=== PATIENT | male | born 1960 | race Caucasian/White ===

== ENCOUNTER 2020-01-21 00:20 | Day surgery (SDC) | payer BC, SELFPAY ==
[2020-01-19 10:40] VITALS: BMI 27.4
[2020-01-21 09:25] VITALS: BP 151/91; PULSE 85; RESP 18; TEMP 36.9; O2SAT 98; BMI 27.8
--- NOTE | 2020-01-21 09:28 | WPDANESEPPF ---
Anes - Initial Pre Proc Eval Procedure: Operation Date: 01/21/20 10:15 Proposed Procedures p Screening Colonoscopy - Romero Walker MD Date/Time: 01/21/20 09:28 Surgeon: Romero Walker MD Pre Op Diagnosis: COLON CA SCREENING Patient Data Age: 59 Gender: M Height: 5 ft 8 in Weight: 83 kg Last Vital Signs Temp 36.9 C 01/21/20 09:25 Pulse 85 01/21/20 09:25 Resp 18 01/21/20 09:25 BP 151/91 H 01/21/20 09:25 Pulse Ox 98 01/21/20 09:25 Allergies Allergy/AdvReac Type Severity Reaction Status Date / Time No Known Allergies Allergy Unverified 01/21/20 09:24 Home Medications Medication Instructions Recorded Confirmed Type albuterol sulfate [ProAir HFA] 2 inh INHALATION TID PRN 01/19/20 01/19/20 History baclofen 10 mg PO TID PRN 01/19/20 01/19/20 History calcium carbonate-vitamin D3 1 cap PO QAM 01/19/20 01/19/20 History [Calcium 600 + D(3)] cetirizine [All Day Allergy 10 mg PO DAILY 01/19/20 01/19/20 History (cetirizine)] fluticasone propionate 1 spray INTRANASAL HS 01/19/20 01/19/20 History meloxicam 15 mg PO HS 01/19/20 01/19/20 History multivit,stress formula-zinc 1 tablet PO DAILY 01/19/20 01/19/20 History [Stress B With Zinc] rizatriptan 10 mg PO ONCE 01/19/20 01/19/20 History sildenafil (pulm.hypertension) 20 mg PO DAILY PRN 01/19/20 01/19/20 History Patient hx anesthesia problems: none Family hx anesthesia problems: none PMFSH Past Medical History Medical History Back pain Chewing tobacco nicotine dependence Anes - Eval Final PreProcedure Day of Procedure 01/21/20 09:28 Patient weight: overweight Heart: regular rate and rhythm Lungs: clear to auscultation Airway: Mallampati scale class 1 Neurological: alert and oriented Last oral intake: >/= 8 hours (chewed this am) ASA classification: II Emergent: no Anesthetic plan: proceed Anesthesia type and monitoring: general GIVS and standard monitoring Informed Consent: The patient's anesthetic plan and its attendant risks and benefits were discussed with the patient/family/POA. Questions were solicited and answers provided to the satisfaction of the patient/family/POA.
[2020-01-21] MEDS: LACTATED RINGERS 1,000 ML 150 ML IV CONT (09:35)
[2020-01-21] MEDS: FAMOTIDINE 20 MG/2 ML VIAL IV PUSH (09:44)
[2020-01-21] MEDS: ONDANSETRON INJ 4 MG/2 ML VIAL IV PUSH (09:44)
--- NOTE | 2020-01-21 10:20 | PM.HPGS ---
History of Present Illness History of Present Illness Consent: Risks, benefits, and alternatives have been discussed and questions answered. Patient agrees to proceed with procedure. Chief complaint: COLON CA SCREENING Narrative: Tre Hardin is a 59 year old male here for screening colonoscopy, last one about 10 years ago. Review of Systems Constitutional: Constitutional: Denies headache(s) and Denies weakness Eyes: Eyes: Denies blurry vision ENT: Reports Normal hearing present, Denies headache(s) and Denies neck pain Cardiovascular: Cardiovascular: Denies chest pain and Denies dyspnea Respiratory: Respiratory: Denies dyspnea Gastrointestinal: Gastrointestinal: Reports no additional gastrointestinal complaints Genitourinary: Genitourinary: Denies dysuria Musculoskeletal: Musculoskeletal: Denies neck pain Integumentary/Breasts: Skin/Breast: Denies dry skin Neurologic: Reports Normal hearing present, Denies headache(s) and Denies weakness Psychiatric: Psychiatric: Denies anxiety Endocrine: Endocrine: Denies change in body appearance Hematologic/Lymphatic: Hematologic/Lymphatic: Denies easy bleeding Allergic/Immunologic: Allergic/Immunologic: Denies urticaria PMFSH Past Medical History Medical History (Updated 01/21/20 @ 10:21 by Romero Walker MD) Back pain Chewing tobacco nicotine dependence Colon cancer screening Meds Home Medications and Allergies Home Medications Medication Instructions Recorded Confirmed Type albuterol sulfate [ProAir HFA] 2 inh INHALATION TID PRN 01/19/20 01/19/20 History baclofen 10 mg PO TID PRN 01/19/20 01/19/20 History calcium carbonate-vitamin D3 1 cap PO QAM 01/19/20 01/19/20 History [Calcium 600 + D(3)] cetirizine [All Day Allergy 10 mg PO DAILY 01/19/20 01/19/20 History (cetirizine)] fluticasone propionate 1 spray INTRANASAL HS 01/19/20 01/19/20 History meloxicam 15 mg PO HS 01/19/20 01/19/20 History multivit,stress formula-zinc 1 tablet PO DAILY 01/19/20 01/19/20 History [Stress B With Zinc] rizatriptan 10 mg PO ONCE 01/19/20 01/19/20 History sildenafil (pulm.hypertension) 20 mg PO DAILY PRN 02/24/20 02/24/20 History Allergies Allergy/AdvReac Type Severity Reaction Status Date / Time No Known Allergies Allergy Unverified 01/21/20 09:24 Vital Signs Vital Signs - 24 hr 01/21/20 09:25 Temperature 98.5 F Pulse Rate 85 Respiratory Rate 18 Blood Pressure 151/91 H Pulse Oximetry 98 Exam Const: General: comfortable and no acute distress HENMT: General nose exam: Normal nares present Eyes: General: appearance normal, both eyes and all related structures Neck: Neck: no JVD Resp: Auscultation: clear to auscultation bilaterally Cardio: Rate: regular rate Rhythm: regular rhythm GI: Inspection: non-distended GI Palp: Yes Soft to palpation Skin: General skin exam: normal color Neuro: General: gait normal Speech: normal speech Extrem: General: normal to inspection Psych: Mental Status: mental status grossly normal Assessment and Plan Assessment and plan (1) Colon cancer screening: Code(s): Z12.11 - Encounter for screening for malignant neoplasm of colon Status: Acute
[2020-01-21 10:23] VITALS: BP 108/75; PULSE 79; RESP 18; O2SAT 98
[2020-01-21 10:43] VITALS: BP 109/73; PULSE 73; RESP 18; O2SAT 98
[2020-01-21 10:53] VITALS: BP 113/76; PULSE 73; RESP 18; O2SAT 98
== END 2020-01-21 10:55 | disposition home or self-care (01) ==
PROVIDERS: PCP Internal Medicine; Visit Provider Internal Medicine Gastroenterology
PROC: 0DJD8ZZ Inspection of Lower Intestinal Tract, Via Natural or Artificial Opening Endoscopic (ICD-10-PCS; CPT 45378; principal; 2020-01-21 10:15)
DX: Z12.11 Encounter for screening for malignant neoplasm of colon (principal); D12.0 Benign neoplasm of cecum; D12.4 Benign neoplasm of descending colon; K57.30 Diverticulosis of large intestine without perforation or abscess without bleeding; K64.8 Other hemorrhoids; F17.220 Nicotine dependence, chewing tobacco, uncomplicated
CPT/HCPCS: 45380; 88305; J2405; J2704; J7120

== ENCOUNTER 2020-05-14 07:42 | Outpatient (CLI) | payer BC, SELFPAY ==
--- NOTE | ~2020-05-14 | CT_ITS ---
EXAMINATION: CT abdomen pelvis w con INDICATION: Right lower quadrant pain TECHNIQUE: Computed tomographic images of the abdomen and pelvis were obtained after the administrati on of 100 cc of Omnipaque 350 intravenous contrast. The dose-length product (DLP) was 480.64 mGy-cm. Automated exposure control and iterative reconstruction technique were employed. COMPARISON: None available FINDINGS: The lung bases are clear. The heart size is normal. The liver, spleen, pancreas, gallbladde r, and adrenal glands are normal. The kidneys are unremarkable. There is calcified atherosclerosis of the aorta and many of the other arteries. No pathologically enlarged abdominal or pelvic lymph nodes are identified. There is no free intraperitoneal gas or evidence of bowel obstruction. The appendix is normal. There are changes of left inguinal hernia repair. A large volume of colonic stool is prese nt. There is moderate lumbar spondylosis. IMPRESSION: 1. Constipation. Reviewed, dictated and finalized at location A. IMPRESSION: 1. Constipation.
[2020-05-14 08:07] LABS: Estimated Glomerular Filt Rate > 60
== END 2020-05-14 07:43 | disposition home or self-care (01) ==
LOC: CHSIMG 07:43
PROVIDERS: PCP Internal Medicine; Visit Provider Internal Medicine
DX: R10.9 Unspecified abdominal pain (principal)
CPT/HCPCS: 74177; Q9965

== ENCOUNTER 2021-07-05 13:24 | Outpatient (CLI) | payer BC, SELFPAY ==
--- NOTE | ~2021-07-05 | XR_ITS ---
EXAMINATION: XR hip BI wo pelvis DATE: 07/05/2021 13:47 INDICATION: Bilateral hip pain. TECHNIQUE: 2 views of right hip and 2 views of left hip were obtained. COMPARISON: Right hip radiographs 08/26/2014, pelvis radiograph 08/26/2014 FINDINGS: Bone alignment is normal. No fracture. There is mild left hip osteoarthritis characterized by tiny marginal osteophytes. Surgical clips overlie the left pelvis. IMPRESSION: 1. Mild left hip osteoarthritis. Reviewed, dictated and finalized at location A.
--- NOTE | ~2021-07-05 | XR_ITS ---
EXAMINATION: XR lumbar spine 2-3V DATE: 07/05/2021 13:47 INDICATION: Low back pain TECHNIQUE: Anteroposterior and lateral views of the lumbar spine, and cone-down lateral view of the l umbosacral junction were obtained. COMPARISON: CT dated 05/14/2020 FINDINGS: Transitional L1 segment with right-sided hypoplastic riblet. 2 mm anterolisthesis L3 on L4. Vertebral body heights are normal. Mild to moderate right-sided predominant disc height loss at L4-L5 and mild disc height loss at L3-L4. Lumbar facet osteoarthritis, moderate bilaterally at L4-L5 and severe bhanu aterally at L5-S1. Mild left-sided and moderate right-sided sacroiliac osteoarthritis. Postoperative change of prior left inguinal hernia repair. IMPRESSION: 1. Moderate lower lumbar facet osteoarthritis. Reviewed, dictated and finalized at location A.
== END 2021-07-05 13:25 | disposition home or self-care (01) ==
LOC: CHSIMG 13:27
PROVIDERS: PCP Internal Medicine; Visit Provider Internal Medicine
DX: M54.9 Dorsalgia, unspecified (principal); M25.552 Pain in left hip; M25.551 Pain in right hip
CPT/HCPCS: 72100; 73521

== ENCOUNTER 2022-07-03 10:45 | Outpatient (CLI) | payer BC, SELFPAY ==
--- NOTE | ~2022-07-03 | XR_ITS ---
XR lumbar spine min 4V DATE: 07/03/2022 11:38 INDICATION: Lumbar stenosis. Leg pain. TECHNIQUE: Weightbearing AP, lateral views. Weightbearing flexion and extension lateral views. COMPARISON: 07/05/2021 lumbar spine FINDINGS: There is mild thoracolumbar dextroscoliosis. Osteopenia. There is minimal grade 1 anterolisthesis at L3-4 and L5-S1. There is moderate degenerative disc disease at L3-4, mild degenerative disc disease at L4-5. No instability of the lumbar spine on flexion or extension. The lower thoracic and lumbar pedicles are intact. The sacroiliac joints are normal. Postoperative change overlying left inguinal area. IMPRESSION: Osteopenia Mild thoracolumbar dextroscoliosis Degenerative disc disease at L3-4 and L4-5 Reviewed, dictated and finalized at location B.
== END 2022-07-03 10:46 | disposition home or self-care (01) ==
PROVIDERS: PCP Internal Medicine; Visit Provider Neurological Surgery
DX: M54.9 Dorsalgia, unspecified (principal); M48.061 Spinal stenosis, lumbar region without neurogenic claudication
CPT/HCPCS: 72110

== ENCOUNTER 2022-07-05 15:55 | Outpatient (CLI) | payer BC, SELFPAY ==
--- NOTE | ~2022-07-05 | XR_ITS ---
EXAMINATION: XR chest 2V 07/05/2022 16:07 INDICATION: Chest pain PROCEDURE: 2 view chest COMPARISON: 05/27/2019 FINDINGS: The lungs are clear. The cardiomediastinal silhouette is within normal limits. There are no pleural effusions. There is no pneumothorax suspected. The lungs are hyperinflated which is consistent with, but not diagnostic of chronic obstructive pulmo nary disease. IMPRESSION: 1: NO ACUTE CARDIOPULMONARY DISEASE. Reviewed, dictated and finalized at location A.
== END 2022-07-05 15:56 | disposition home or self-care (01) ==
LOC: CHSIMG 15:57
PROVIDERS: PCP Internal Medicine; Visit Provider Internal Medicine
DX: Z00.00 Encounter for general adult medical examination without abnormal findings (principal); M54.9 Dorsalgia, unspecified; E78.5 Hyperlipidemia, unspecified; R63.4 Abnormal weight loss; R23.2 Flushing; Z12.5 Encounter for screening for malignant neoplasm of prostate
CPT/HCPCS: 71046

== ENCOUNTER 2022-07-07 12:36 | Outpatient (CLI) | payer BC, SELFPAY | END 2022-07-07 12:37 | disposition home or self-care (01) | LOC: CHSCARD 12:37 | PROVIDERS: PCP Internal Medicine; Visit Provider Internal Medicine | DX: J44.9 Chronic obstructive pulmonary disease, unspecified (principal) | CPT/HCPCS: 94060; 94726; 94729 ==

== ENCOUNTER 2023-03-14 09:35 | Outpatient (NON) | payer BC, SELFPAY ==
[2023-03-14 09:50] LABS: Basophils Absolute Auto 0.09 K/mm3 (0.00-0.10); Basophils Percent Auto 1.5 % (0.0-1.0); Eosinophils Absolute Auto 0.28 K/mm3 (0.02-0.50); Eosinophils Percent Auto 4.6 % (1.0-6.0); Hematocrit 39.5 % (40.0-54.0); Hemoglobin 12.7 g/dL (14.0-18.0); Immature Granulocyte Absolute 0.01 K/mm3 (0.00-0.00); Immature Granulocyte Percent A 0.2 % (0.0-0.0); Lymphocytes Absolute Auto 1.56 K/mm3 (1.10-4.50); Lymphocytes Percent Auto 25.8 % (18.0-42.0); Mean Corpuscular HGB Conc 32.2 g/dL (32.0-36.0); Mean Corpuscular Hemoglobin 27.2 pg (27.0-31.0); Mean Corpuscular Volume 84.6 fL (78.0-102.0); Mean Platelet Volume 9.3 fl (8.7-11.0); Monocytes Absolute Auto 0.63 K/mm3 (0.10-0.90); Monocytes Percent Auto 10.4 % (2.0-11.0); Neutrophils Absolute Auto 3.5 K/mm3 (1.7-7.2); Neutrophils Percent Auto 57.5 % (50.0-70.0); Platelet Count Result 322 K/mm3 (150-420); Red Blood Count 4.67 M/mm3 (4.70-6.10); White Blood Count 6.1 K/mm3 (4.8-10.8)
[2023-03-14 10:07] LABS: Alanine Aminotransferase 27 U/L (16-63); Albumin Level 3.2 g/dL (3.4-5.0); Alkaline Phosphatase 105 U/L (46-116); Anion Gap 9 mmol/L (8-16); Aspartate Amino Transferase 23 U/L (15-37); Bilirubin,Total 0.3 mg/dL (0.00-1.00); Blood Urea Nitrogen 12 mg/dL (7-18); Calcium 8.9 mg/dL (8.5-10.1); Carbon Dioxide 28 mmol/L (21-32); Chloride 103 mmol/L (98-108); Estimated Glomerular Filt Rate > 60; Glucose 96 mg/dL (70-99); Osmolality Calculated 289 mOsm/kg (285-295); Potassium 3.8 mmol/L (3.5-5.1); Sodium 140 mmol/L (136-145); Total Protein 7.9 g/dL (6.4-8.2)
[2023-03-14 10:14] LABS: CRP < 0.5 mg/dL (0.0-0.9)
[2023-03-14 10:35] LABS: Erythrocyte Sedimentation Rate 35 mm/hr (0-20)
== END 2023-03-14 09:36 | disposition home or self-care (01) ==
LOC: CHSLAB 09:37
PROVIDERS: Visit Provider Internal Medicine
DX: M46.26 Osteomyelitis of vertebra, lumbar region (principal)
CPT/HCPCS: 36415; 80053; 85025; 85652; 86140

== ENCOUNTER 2023-03-21 10:32 | Outpatient (NON) | payer BC, SELFPAY ==
[2023-03-21 10:56] LABS: Basophils Absolute Auto 0.07 K/mm3 (0.00-0.10); Basophils Percent Auto 1.3 % (0.0-1.0); Eosinophils Absolute Auto 0.36 K/mm3 (0.02-0.50); Eosinophils Percent Auto 6.7 % (1.0-6.0); Hematocrit 41.7 % (40.0-54.0); Hemoglobin 13.2 g/dL (14.0-18.0); Immature Granulocyte Absolute 0.01 K/mm3 (0.00-0.00); Immature Granulocyte Percent A 0.2 % (0.0-0.0); Lymphocytes Absolute Auto 1.33 K/mm3 (1.10-4.50); Lymphocytes Percent Auto 24.9 % (18.0-42.0); Mean Corpuscular HGB Conc 31.7 g/dL (32.0-36.0); Mean Corpuscular Hemoglobin 26.8 pg (27.0-31.0); Mean Corpuscular Volume 84.8 fL (78.0-102.0); Mean Platelet Volume 9.4 fl (8.7-11.0); Monocytes Absolute Auto 0.63 K/mm3 (0.10-0.90); Monocytes Percent Auto 11.8 % (2.0-11.0); Neutrophils Absolute Auto 2.9 K/mm3 (1.7-7.2); Neutrophils Percent Auto 55.1 % (50.0-70.0); Platelet Count Result 260 K/mm3 (150-420); Red Blood Count 4.92 M/mm3 (4.70-6.10); Red Cell Distribution Width 13.5 % (11.6-14.4); White Blood Count 5.3 K/mm3 (4.8-10.8)
[2023-03-21 11:11] LABS: Alanine Aminotransferase 20 U/L (16-63); Albumin Level 3.5 g/dL (3.4-5.0); Alkaline Phosphatase 99 U/L (46-116); Anion Gap 6 mmol/L (8-16); Aspartate Amino Transferase 17 U/L (15-37); Bilirubin,Total 0.4 mg/dL (0.00-1.00); Blood Urea Nitrogen 14 mg/dL (7-18); Calcium 8.8 mg/dL (8.5-10.1); Carbon Dioxide 28 mmol/L (21-32); Chloride 103 mmol/L (98-108); Estimated Glomerular Filt Rate > 60; Glucose 98 mg/dL (70-99); Osmolality Calculated 284 mOsm/kg (285-295); Potassium 3.9 mmol/L (3.5-5.1); Sodium 137 mmol/L (136-145); Total Protein 7.8 g/dL (6.4-8.2)
[2023-03-21 11:26] LABS: CRP < 0.5 mg/dL (0.0-0.9)
[2023-03-21 11:59] LABS: Erythrocyte Sedimentation Rate 30 mm/hr (0-20)
[2023-03-22 12:15] LABS: Creatine Kinase 110 U/L (39-308)
== END 2023-03-21 10:33 | disposition home or self-care (01) ==
PROVIDERS: Visit Provider Internal Medicine
DX: M46.26 Osteomyelitis of vertebra, lumbar region (principal); G06.1 Intraspinal abscess and granuloma; T81.40XA Infection following a procedure, unspecified, initial encounter
CPT/HCPCS: 36415; 80053; 82550; 85025; 85652; 86140

== ENCOUNTER 2023-04-04 09:36 | Outpatient (NON) | payer BC, SELFPAY ==
[2023-04-04 09:47] LABS: Basophils Absolute Auto 0.07 K/mm3 (0.00-0.10); Basophils Percent Auto 1.5 % (0.0-1.0); Eosinophils Absolute Auto 0.28 K/mm3 (0.02-0.50); Eosinophils Percent Auto 5.8 % (1.0-6.0); Hematocrit 40.4 % (40.0-54.0); Hemoglobin 12.9 g/dL (14.0-18.0); Immature Granulocyte Absolute 0.02 K/mm3 (0.00-0.00); Immature Granulocyte Percent A 0.4 % (0.0-0.0); Lymphocytes Absolute Auto 1.32 K/mm3 (1.10-4.50); Lymphocytes Percent Auto 27.6 % (18.0-42.0); Mean Corpuscular HGB Conc 31.9 g/dL (32.0-36.0); Mean Corpuscular Hemoglobin 26.9 pg (27.0-31.0); Mean Corpuscular Volume 84.3 fL (78.0-102.0); Mean Platelet Volume 9.6 fl (8.7-11.0); Monocytes Absolute Auto 0.53 K/mm3 (0.10-0.90); Monocytes Percent Auto 11.1 % (2.0-11.0); Neutrophils Absolute Auto 2.6 K/mm3 (1.7-7.2); Neutrophils Percent Auto 53.6 % (50.0-70.0); Platelet Count Result 227 K/mm3 (150-420); Red Blood Count 4.79 M/mm3 (4.70-6.10); Red Cell Distribution Width 13.7 % (11.6-14.4); White Blood Count 4.8 K/mm3 (4.8-10.8)
[2023-04-04 10:06] LABS: Alanine Aminotransferase 26 U/L (16-63); Albumin Level 3.4 g/dL (3.4-5.0); Alkaline Phosphatase 86 U/L (46-116); Anion Gap 11 mmol/L (8-16); Aspartate Amino Transferase 27 U/L (15-37); Bilirubin,Total 0.4 mg/dL (0.00-1.00); Blood Urea Nitrogen 16 mg/dL (7-18); Calcium 8.7 mg/dL (8.5-10.1); Carbon Dioxide 26 mmol/L (21-32); Chloride 103 mmol/L (98-108); Creatine Kinase 222 U/L (39-308); Estimated Glomerular Filt Rate > 60; Glucose 130 mg/dL (70-99); Osmolality Calculated 293 mOsm/kg (285-295); Potassium 3.8 mmol/L (3.5-5.1); Sodium 140 mmol/L (136-145); Total Protein 7.1 g/dL (6.4-8.2)
[2023-04-04 10:08] LABS: CRP < 0.5 mg/dL (0.0-0.9)
[2023-04-04 10:30] LABS: Erythrocyte Sedimentation Rate 12 mm/hr (0-20)
== END 2023-04-04 09:37 | disposition home or self-care (01) ==
LOC: CHSLAB 09:39
PROVIDERS: Visit Provider Internal Medicine
DX: M46.26 Osteomyelitis of vertebra, lumbar region (principal); G06.1 Intraspinal abscess and granuloma
CPT/HCPCS: 36415; 80053; 82550; 85025; 85652; 86140

== ENCOUNTER 2023-04-11 09:43 | Outpatient (NON) | payer BC, SELFPAY ==
[2023-04-11 09:54] LABS: Basophils Absolute Auto 0.06 K/mm3 (0.00-0.10); Basophils Percent Auto 1.2 % (0.0-1.0); Eosinophils Percent Auto 6.1 % (1.0-6.0); Hematocrit 40.9 % (40.0-54.0); Hemoglobin 13.4 g/dL (14.0-18.0); Immature Granulocyte Absolute 0.02 K/mm3 (0.00-0.00); Immature Granulocyte Percent A 0.4 % (0.0-0.0); Lymphocytes Absolute Auto 1.53 K/mm3 (1.10-4.50); Lymphocytes Percent Auto 31.3 % (18.0-42.0); Mean Corpuscular HGB Conc 32.8 g/dL (32.0-36.0); Mean Corpuscular Hemoglobin 27.5 pg (27.0-31.0); Mean Platelet Volume 9.5 fl (8.7-11.0); Monocytes Absolute Auto 0.64 K/mm3 (0.10-0.90); Monocytes Percent Auto 13.1 % (2.0-11.0); Neutrophils Absolute Auto 2.3 K/mm3 (1.7-7.2); Neutrophils Percent Auto 47.9 % (50.0-70.0); Platelet Count Result 238 K/mm3 (150-420); Red Blood Count 4.87 M/mm3 (4.70-6.10); Red Cell Distribution Width 13.6 % (11.6-14.4); White Blood Count 4.9 K/mm3 (4.8-10.8)
[2023-04-11 10:10] LABS: Alanine Aminotransferase 30 U/L (16-63); Albumin Level 3.5 g/dL (3.4-5.0); Alkaline Phosphatase 85 U/L (46-116); Anion Gap 8 mmol/L (8-16); Aspartate Amino Transferase 21 U/L (15-37); Bilirubin,Total 0.4 mg/dL (0.00-1.00); Blood Urea Nitrogen 14 mg/dL (7-18); Calcium 8.7 mg/dL (8.5-10.1); Carbon Dioxide 28 mmol/L (21-32); Chloride 103 mmol/L (98-108); Creatine Kinase 112 U/L (39-308); Estimated Glomerular Filt Rate > 60; Glucose 91 mg/dL (70-99); Osmolality Calculated 288 mOsm/kg (285-295); Potassium 3.7 mmol/L (3.5-5.1); Sodium 139 mmol/L (136-145); Total Protein 7.2 g/dL (6.4-8.2)
[2023-04-11 10:17] LABS: CRP < 0.5 mg/dL (0.0-0.9)
[2023-04-11 10:59] LABS: Erythrocyte Sedimentation Rate 11 mm/hr (0-20)
== END 2023-04-11 09:44 | disposition home or self-care (01) ==
LOC: CHSLAB 09:46
PROVIDERS: Visit Provider Internal Medicine
DX: M46.26 Osteomyelitis of vertebra, lumbar region (principal); L02.818 Cutaneous abscess of other sites
CPT/HCPCS: 36415; 80053; 82550; 85025; 85652; 86140

== ENCOUNTER 2023-04-18 09:29 | Outpatient (NON) | payer BC, SELFPAY ==
[2023-04-18 09:46] LABS: Basophils Absolute Auto 0.09 K/mm3 (0.00-0.10); Basophils Percent Auto 1.6 % (0.0-1.0); Eosinophils Absolute Auto 0.37 K/mm3 (0.02-0.50); Eosinophils Percent Auto 6.6 % (1.0-6.0); Hematocrit 43.5 % (40.0-54.0); Hemoglobin 13.7 g/dL (14.0-18.0); Immature Granulocyte Absolute 0.02 K/mm3 (0.00-0.00); Immature Granulocyte Percent A 0.4 % (0.0-0.0); Lymphocytes Percent Auto 32.2 % (18.0-42.0); Mean Corpuscular HGB Conc 31.5 g/dL (32.0-36.0); Mean Corpuscular Hemoglobin 26.3 pg (27.0-31.0); Mean Corpuscular Volume 83.5 fL (78.0-102.0); Mean Platelet Volume 9.7 fl (8.7-11.0); Monocytes Absolute Auto 0.69 K/mm3 (0.10-0.90); Monocytes Percent Auto 12.3 % (2.0-11.0); Neutrophils Absolute Auto 2.6 K/mm3 (1.7-7.2); Neutrophils Percent Auto 46.9 % (50.0-70.0); Platelet Count Result 263 K/mm3 (150-420); Red Blood Count 5.21 M/mm3 (4.70-6.10); Red Cell Distribution Width 13.3 % (11.6-14.4); White Blood Count 5.6 K/mm3 (4.8-10.8)
[2023-04-18 10:15] LABS: Alanine Aminotransferase 29 U/L (16-63); Albumin Level 3.5 g/dL (3.4-5.0); Alkaline Phosphatase 82 U/L (46-116); Anion Gap 7 mmol/L (8-16); Aspartate Amino Transferase 22 U/L (15-37); Bilirubin,Total 0.3 mg/dL (0.00-1.00); Blood Urea Nitrogen 10 mg/dL (7-18); Calcium 8.7 mg/dL (8.5-10.1); Carbon Dioxide 30 mmol/L (21-32); Chloride 104 mmol/L (98-108); Creatine Kinase 70 U/L (39-308); Estimated Glomerular Filt Rate > 60; Glucose 96 mg/dL (70-99); Osmolality Calculated 291 mOsm/kg (285-295); Potassium 3.8 mmol/L (3.5-5.1); Sodium 141 mmol/L (136-145); Total Protein 7.3 g/dL (6.4-8.2)
[2023-04-18 10:22] LABS: CRP < 0.5 mg/dL (0.0-0.9)
[2023-04-18 10:46] LABS: Erythrocyte Sedimentation Rate 7 mm/hr (0-20)
== END 2023-04-18 09:30 | disposition home or self-care (01) ==
LOC: CHSLAB 09:33
PROVIDERS: Visit Provider Internal Medicine
DX: M46.26 Osteomyelitis of vertebra, lumbar region (principal)
CPT/HCPCS: 36415; 80053; 82550; 85025; 85652; 86140

== ENCOUNTER 2025-04-06 11:59 | Outpatient (CLI) | payer BC, SELFPAY ==
--- OUTSIDE RECORDS SUMMARY | 2025-04-06 12:03 | XMS_ITS | Referral Summary ---
Author Organization 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 [place] [address] Светлана Andrews NP Degeneration of intervertebral disc of lumbar region with discogenic back pain (Primary Dx); FPC (current) use of opiate analgesic; Degenerative lumbar spinal stenosis Discharge Disposition: Discharge to home or self care from Last 3 Months Allergies No known active allergies Medications DULoxetine DR (CYMBALTA) 30 mg capsule 09/05/20 21 Active Movantik 25 mg tablet Take 1 tablet (25 mg total) by mouth daily 04/09/20 23 Active pravastatin (PRAVACHOL) 10 mg tablet Take 1 tablet (10 mg total) by mouth daily 02/09/20 21 Active cetirizine 10 mg capsule Take 1 tablet by mouth daily 03/02/20 23 Active naloxone (NARCAN) 4 mg/actuation spray,non-aerosol Indications:DDD (degenerative disc disease), lumbar,Lumbar facet arthropathy Administer 1 spray into affected nostril(s) as needed for opioid reversal 1 each 08/13/20 23 Active cyclobenzaprine (FLEXERIL) 10 mg tabletIndications :Chronic bilateral low back pain without sciatica,Lumbar radiculopathy Take 1 tablet (10 mg total) by mouth daily as needed for muscle spasms 15 tablet 1 02/25/20 24 Active 0.9 % sodium chloride (sodium chloride 0.9%) 0.9% infusion Infuse 10 mL into a venous catheter 2 (two) times a day 02/29/20 23 Active albuterol HFA (PROVENTIL HFA,VENTOLIN HFA,PROAIR HFA) 90 mcg/actuation inhaler Inhale 2 puffs every 6 (six) hours as needed Active colchicine (COLCRYS) 0.6 mg tablet Take 2 tablets by oral route now then one tablet in one hour 01/12/20 24 Active fluticasone propionate (FLONASE) 50 mcg/actuation nasal spray 02/22/20 21 Active rizatriptan (MAXALT) 10 mg tablet 11/27/19 24 Active sildenafiL (VIAGRA) 25 mg tablet 04/11/20 24 Active diazePAM (VALIUM) 5 mg tabletIndications :anxiety Take 1 tablet (5 mg total) by mouth as needed for anxiety 5mg 1 hour prior to MRI. Patient may repeat second dose of 5mg immediately before MRI 2 tablet 10/31/20 24 Active diazePAM (VALIUM) 5 mg tabletIndications :Panic Disorder,Sedation ,anxiety Take 1 tablet (5 mg total) by mouth as directed Take one 5mg tablet one hour before MRI. May repeat second dose of one 5mg tablet immediately before MRI. Please have straddle bug driver to and from MRI. 2 tablet 11/12/20 24 Active gabapentin (NEURONTIN) 300 mg capsuleIndication s:Chronic bilateral low back pain without sciatica,Lumbar radiculopathy Take 1 capsule (300 mg total) by mouth 3 (three) times a day 90 capsule 3 01/14/20 25 025 Active HYDROcodone-aceta minophen (NORCO) 10-325 mg per tabletIndications :Pain Take 1 tablet by mouth 3 (three) times a day as needed for pain 90 tablet 04/02/20 25 025 Active amoxicillin-clavu lanate (AUGMENTIN) 875-125 mg per tablet TAKE 1 TABLET BY MOUTH EVERY 12 HOURS 180 tablet 02/17/20 25 Active sulfamethoxazole- trimethoprim (BACTRIM DS) 800-160 mg per tablet TAKE 1 TABLET BY MOUTH EVERY 12 HOURS 180 tablet 02/17/20 25 Active HYDROcodone-aceta minophen (NORCO) 10-325 mg per tabletIndications :Pain Take 1 tablet by mouth 3 (three) times a day as needed for pain 90 tablet 03/03/20 25 025 Active Problems Problem Noted Date Diagnosed Date Infection of deep incisional surgical site after procedure 04/16/2023 Assessment & Plan (02/12/2025 1:59 PM CDT): - No concern for recurrent infection on exam today. He remains on Bactrim and Augmentin suppression and is tolerating well - He plans to go back to the OR later this year for revision of his fusion. I am hoping we can try to get him off antibiotics but will discuss with ID attending and neurosurgery to determine exactly what will happen in surgery. Discussed with patient that if the disc implants remain in place there is a chance these are colonized and could cause recurrent infection but he has received a long course of broad spectrum antibiotics for a culture negative infection so I am hoping this would not occur but there is no guarantee. Will discuss with colleagues and get back with patient. I asked him to let me know once a surgery date is determined. Assessment & Plan (09/26/2024 10:47 AM CDT): - Remains on bactrim and augmentin suppression with no adverse effects. He recently saw spine surgery and may have surgery in the near future pending CT next month and follow up with Dr. Olmos - He has been on antibiotic suppression for over a year at this point. We discussed de-escalating therapy at this time with stopping Augmentin and continuing Bactrim but given he may have surgery we will wait and talk with surgeons. If he is to have old hardware removed and new hardware placed we will plan to d/c antibiotics 2-3 weeks prior to surgery and have surgeons take cultures. If cultures negative he will not need additional antibiotic therapy and we can get him off suppression. He verbalized understanding. I will reach out to surgery team to discuss. For now he will continue both Bactrim and Augmentin - CBC and CMP today for monitoring Assessment & Plan (03/07/2024 9:53 AM CDT): - Remains on bactrim and augmentin suppression with no adverse effects. He continues to have back pain that is chronic with no other concerns for infection (fevers, chills, neurologic changes, etc). He would like to see someone in neurosurgery at [facility] to discuss if there are any surgical options available for pain relief. 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 - Lab orders sent to [facility] (CBC, CMP) - Discussed with patient the rational for treatment, culture results, risk of recurrent infection, signs/symptoms of recurrent infection, and to contact ID clinic with any questions or concerns Assessment & Plan (09/03/2023 1:02 PM CDT): - Remains on bactrim and augmentin suppression with no adverse effects. He continues to have back pain that he thinks may have gotten worse. At last ID visit inflammatory markers were normal. Given lack of other signs or symptoms of infection I have a low suspicion that his pain is due to worsening infection. 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 - Lab orders sent to [facility] (CBC, CMP, ESR, and CRP) - If inflammatory markers are significantly elevated or if he has other signs or symptoms of infection would recommend repeat MRI - Discussed with patient the rational for treatment, culture results, risk of recurrent infection, signs/symptoms of recurrent infection, and to contact ID clinic with any questions or concerns Assessment & Plan (05/25/2023 11:13 AM CDT): - Clinically doing well on exam today no concern for worsening infection. He has had an increase in back pain recently which is likely muscular did increased activity and starting physical therapy. He is concerned about how he will know if his infection has progressed P he told him that it is very unlikely for progressive infection on broad-spectrum antibiotic suppression and we do have evidence that infection is improving based off of last MRI. At this point I would not recommend any repeat imaging as I do not feel it will be useful. We can recheck inflammatory markers with next set of labs - Stop doxycycline today given photosensitivity. 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 - Needs repeat labs 1-2 weeks after starting doxycycline to reassess renal function. Will place orders for CBC, CMP, ESR, CRP to be drawn locally at [facility]. Assessment & Plan (04/16/2023 2:01 PM CDT): - Patient clinically doing well on exam today with no concern for worsening infection. Surgical incision is well healed. He has no systemic signs or symptoms of infection at this time. Inflammatory markers now normalized. Pain significantly improved since starting on antibiotics. Imaging from January does show concern for post op infection, he has not had a surgical debridement. He has repeat imaging scheduled for next week. - Continue IV daptomycin and IV cefepime for culture negative post op spinal infection. Plan to continue for at least another week until we can review updated MRI (scheduled for Sunday) and spine surgery appointment (scheduled for Sunday). If no plans for surgical intervention and no concern for progression of infection on exam will likely de-escalate antibiotic therapy to suppression with doxycycline and augmentin. If he is to undergo a surgical debridement would recommend that multiple deep cultures be taken in attempt to identify organism. - We discussed plan for jail suppression due to retained hardware due to risk of recurrent infection. He is agreeable to plan - Continue weekly CBC, CMP, and CK while on IV antibiotics - Continue to hold statin while on IV daptomycin due to risk of rhabdomyolysis Postoperative infection 02/23/2023 Left hip pain 08/04/2022 FPC (current) use of opiate analgesic 02/25 Degenerative lumbar spinal stenosis 11/17/2021 DDD (degenerative disc disease), lumbar 09/08/20 21 Lumbar facet arthropathy 09/08/2021 Insomnia secondary to chronic pain 09/08/2021 Sacroiliitis 09/08/2021 Lumbar radiculopathy 09/08/2021 Chronic bilateral low back pain without sciatica 09/08/2021 Contusion of right clavicle 03/28/2019 Rotator cuff strain, right, initial encounter 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 Numbness of lower extremity 10/14/2015 Immunizations Immunization Administration Dates Next Due Influenza, Quadrivalent, Ana Maria l Culture-based MDCK, Preservative Free, Antibiotic Free, Intramuscular 09/02/2020 Influenza, Quadrivalent, Spl it, Intramuscular 10/18/2016,08/26/2014 Influenza, Quadrivalent, Spl it, Preservative Free, Intramuscular 09/15/2019,08/31/2018,08/30/2018 Influenza, Trivalent, IM (MDV) 08/20/2021 Influenza, Trivalent, Preser vative Free, Intramuscular 09/23/2015 Tdap 05/28/2014 ZOSTER Recombinant 02/16/2021 Social History Tobacco Use Types Packs/Day Years Used Date Smoking Tobacco: Former Smokeless Tobacco: Current Chew Tobacco Cessation:Ready to Q uit: Not Asked; Counseling Given: No Alcohol Use Standard Drinks/Week Comments Not Currently 0 (1 standard drink = 0.6 oz pur e alcohol) AUDIT-C Answer Date Recorded Q1: How often do you have a drink containing alc ohol? 2-4 times a month 05/01/2024 Q2: How many drinks containi ng alcohol do you have on a typical day when you are drinking? 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 EQUIPMENT MECHANIC Gender Identity Male 08/25/2024 9:56 AM CDT Sexual Orientation Straight 08/25/2024 9: 56 AM CDT Last Filed Vital Signs Vital Sign Reading Time Taken Comments Blood Pressure 115/75 02/11/2025 2:48 PM CDT Pulse 84 02/11/2025 2:48 PM CDT Temperature 36.7 C (98 F) 02/11/2025 2:48 PM CDT Respiratory Rate 18 01/14/2025 10:46 AM IRRIGATION EQUIPMENT MECHANIC Oxygen Saturation 96% 02/11/2025 2:48 PM CDT Inhaled Oxygen Concentration - - Weight 86 kg (189 lb 9.6 oz) 02/11/2025 2:48 PM CDT Height 170.2 cm (5' 7.01 ) 02/11/2025 2:48 PM CD T Body Mass Index 29.69 02/11/2025 2:48 PM CDT Plan of Treatment Not on file Goals Goal Patient Goal Type Associated Problems Recent Progress Patient-Stated? Author [facility] Improving( 2:16 PM IRRIGATION EQUIPMENT MECHANIC) No Radha Bonilla, NESTOR Note: Patient will establish a comfort-function goal and identify the pain level that will allow the patient to perform desired activities and achieve an acceptable quality of life. Procedures Procedure Name Priority Date/Time Associated Diagnosis Comments COLONOSCOPY 07/04/2011 12:00 AM CDT from Last 3 Months or Most Recently Relevant to Health Maintenance Results * COLONOSCOPY (07/04/2011 12:00 AM CDT) Anatomical Region Laterality Modality Other Narrative 07/04/2011 12:00 AM CDT Ordered by an unspecified provider. Procedure Note Provider, MD Jose Francisco - 07/04/2011 12:00 AM CDT PROCEDURE REPORT Patient: QASIM DE LOS SANTOS Account: [id number] Room No: : 1960 Patient Type: [facility] Attend.: Bolivar Florian M.D. Admit Date: 07/04/2011 Dict.: Bolivar Florian M.D. Disch. Date: NAME OF PROCEDURE: Colonoscopy. HISTORY: This is a 51-year-old male who presents for screeningcolonoscopy. PHYSICAL EXAMINATION: GENERAL: Well developed male. LUNGS: Clear. CARDIOVASCULAR: Unremarkable. PROCEDURE: Colonoscopy was performed with a [employer] video endoscope.The patient was premedicated by anesthesia. On digital exam, he has got gradeII hemorrhoids. We inserted the endoscope and advanced it to the cecum.The colon was well prepped, well visualized and looked normal. The patient tolerated the procedure without difficulty. POSTOPERATIVE DIAGNOSIS: Normal colonoscopy. Bolivar Florian M.D. /bryce TD: 07/04/2011 17:16 PROCEDURE REPORT Authenticated by Bolivar Florian MD On 07/06/2011 09:26:17 AM Historical Provider MD ENDOSCOPY PROCEDURES Naheed l Result from Last 3 Months or Most Recently Relevant to Health Maintenance Insurance [employer] [place] [facility] Care Teams Sand Drier Relationship Specialty Start Date End Date Aureliano Rogers MD PCP - General 03/28/19
--- OUTSIDE RECORDS SUMMARY | 2025-04-06 12:04 | XMS_ITS | Clinical Summary ---
Author Organization [facility] Address [address] [place] [address] Phone Care Team Providers Care Flying Instructor Name Role Phone Aureliano Rogers MD Primary Care Provider [phone] Allergies No known active allergies Medications meloxicam (MOBIC) 15 MG Tablet Take 1 Tablet by mouth daily. 01/06/2021 Active baclofen (LIORESAL) 10 MG Tablet TAKE 1 TABLET BY MOUTH TWICE DAILY NEEDED 01/27/2021 Active pravastatin (PRAVACHOL) 10 MG Tablet Take 10 mg by mouth daily. 02/08/2021 Active fluticasone (FLONASE) 50 MCG/ACT Suspension 02/21/2021 Active DULoxetine (CYMBALTA) [address] Particles 02/03/2021 Active HYDROcodone-marcella taminophen (NORCO) 10-325 MG Tablet TAKE 1 TABLET BY MOUTH 3 TIMES A DAY NEEDED FOR PAIN. [place] 12/06/2023 Active methocarbamol (ROBAXIN) 750 MG Tablet Take 750 mg by mouth 2 times daily. 11/06/2023 Active amoxicillin-cla vulanate (AUGMENTIN) 875-125 MG Tablet TAKE 1 TABLET BY MOUTH EVERY 12 HOURS 12/11/2023 Active Rizatriptan Benzoate 10 MG Tablet 11/27/2023 Active sulfamethoxazol e-trimethoprim DS (BACTRIM DS, SEPTRA DS) 800-160 MG Tablet TAKE 1 TABLET BY MOUTH EVERY 12 HOURS 12/11/2023 Active colchicine 0.6 MG Tablet Take 2 tablets by oral route now then one tablet in one hour 3 Tablet 01/12/2024 Active Active Problems No known active problems Social History Tobacco Use Types Packs/Day Years Used Date Smoking Tobacco: Never Smokeless Tobacco: Current Chew Sex and Gender Information Value Date Recorded Sex Assigned at Not on file Legal Sex Male 8:35 PM CDT Gender Identity Not on file Sexual Orientation Not on file Last Filed Vital Signs Vital Sign Reading Time Taken Comments Blood Pressure 108/80 01/12/2024 9:36 AM SCOURING TRAIN OPERATOR Pulse 94 01/12/2024 9:36 AM SCOURING TRAIN OPERATOR Temperature 36.8 C (98.3 F) 01/12/2024 9:36 AM SCOURING TRAIN OPERATOR Respiratory Rate 18 01/12/2024 9:36 AM SCOURING TRAIN OPERATOR Oxygen Saturation 98% 01/12/2024 9:36 AM SCOURING TRAIN OPERATOR Inhaled Oxygen Concentration - - Weight 83.5 kg (184 lb) 01/12/2024 9:36 AM SCOURING TRAIN OPERATOR Height - - Body Mass Index - - Plan of Treatment Health Maintenance Due Date Last Done Comments Hepatitis C Virus (HCV) Screening 1960 Colonoscopy 2005 Colorectal Cancer Screening 2005 Cologuard 2010 Immunochemical Fecal Occult Blood 2010 Pneumococcal Immunization (50+ years) (1 of 1 - PCV) 2010 PSA Discussion 2015 Zoster Immunization (2 of 2) 04/13/2021 02/16/2021 Influenza Immunization (#1) 07/27/202408/27, 10/02/2022, 08/20/2021, Additional history exists SARS-COV-2 Immunization ( season) 2024 11/12/2022, 09/30/2021, 01/08/2021, Additional history exists Respiratory Syncytial Virus (RSV) Immunization (Adult) (1 - 1-dose 75+ series) 2035 DTaP/Tdap/Td Immunization Discontinued 05/28/2014 TdaP Immunization Completed 05/28/2014 Hepatitis B Immunization Aged Out No longer eligible based on patient's age to complete this topic Meningococcal Immunization (ACWY) Aged Out No longer eligible based on patient's age to complete this topic Rotavirus Immunization Aged Out No lo nger eligible based on patient's age to complete this topic Insurance [facility] Care Teams Flying Instructor Relationship Specialty Start Date End Date Aureliano Rogers MD [address] [place] [address] PCP - General Internal Medicine 03/02/21
--- OUTSIDE RECORDS SUMMARY | 2025-04-06 12:04 | XMS_ITS | Clinical Summary ---
Author Organization [facility] Address [address] [place] [address] Care Team Providers Care Hip Hop Dance Instructor Name Role Phone Aureliano Rogers MD Primary Care Provider [phone] Allergies No known active allergies Medications DULoxetine (CYMBALTA) 30 MG capsuleIndicat ions:Depressio n Take 2 capsules by mouth nightly. Indications: Depression Active pravastatin (PRAVACHOL) 10 MG tabletIndicati ons:Hyperchlor emia Take 1 tablet by mouth nightly at bedtime. Indications: High Amount of Chloride in the Blood Unsure of dose Active rizatriptan (MAXALT) 10 MG tabletIndicati ons:Migraine Take 1 tablet by mouth as needed for Migraine. Indications: Migraine May repeat in 2 hours if needed Active albuterol sulfate HFA 108 (90 Base) MCG/ACT inhalerIndicat ions:Asthma Inhale 2 puffs into the lungs every 6 (six) hours as needed for Wheezing. Indications: Asthma Active gabapentin (NEURONTIN) 100 MG capsuleIndicat ions:Neuropath y Take 3 capsules by mouth nightly. Indications: Nerve Disease Active methocarbamol (ROBAXIN) 750 MG TabIndications :Pain Take 1 tablet (750 mg total) by mouth 3 (three) times daily. Indications: Pain Active naloxegol oxalate (MOVANTIK) 25 MG tabletIndicati ons:Constipati on Take 25 mg by mouth every morning before breakfast. Indications: Constipation 3 Active Psyllium (DIETARY FIBER LAXATIVE OR)Indications :Constipation Take 1 tablet by mouth daily. Indications: Constipation 3 Active Cetirizine HCl (ALL DAY ALLERGY OR)Indications :Allergy Take 1 tablet by mouth daily. Indications: Allergy 3 Active Multiple Vitamins-Greene als (ONE A DAY MENS VITACRAVES) Chew TabIndications :Vitamin Deficiency Chew 1 tablet by mouth daily. Indications: Vitamin Deficiency 3 Active sodium chloride 0.9 % solutionIndica tions:Flushing Inject 10 mLs into the vein 2 (two) times a day. Indications: Flushing 3 Active HEPARIN & NACL LOCK FLUSH IVIndications: Flushing 5 mLs by Intravenous (IVP, IVPB) route 2 (two) times a day. 10 units/ml Indications: Flushing 3 Active ceFEPIme (MAXIPIME) 2 GM/100ML IV SOLNIndication s:Infection,Os teomyelitis Inject 2 g into the vein daily. Indications: Infection, Osteomyelitis 3 Active DAPTOMYCIN IVIndications: Infection,Oste omyelitis of lumbar region vertebra Inject 650 mg into the vein daily. Mixed in 100 ml of 0.9% NS Indications: Infection, Osteomyelitis of lumbar region vertebra 3 Active rifAMPin (RIFADIN) 300 MG capsuleIndicat ions:Infection Take 300 mg by mouth every 12 (twelve) hours. Indications: Infection 3 Active Active Problems Problem Noted Date Diagnosed Date Postoperative infection 02/23/2023 Lumbar stenosis with neurogenic claudication 04/2022 Family History Medical History Relation Comments Heart Disease Brother 1 mi Cancer Father liver Hypertension Father Cancer Maternal Grandfather lung Cancer Mother lung Relation Status Comments Brother 1 Alive Brother 2 Alive Brother 3 Alive Daughter 1 Alive Daughter 2 Alive Father Maternal Grandfather Mother Social History Tobacco Use Types Packs/Day Years Used Date Smoking Tobacco: Former Cigarettes 1 17 1 977 - 1994 Smokeless Tobacco: Current Chew Alcohol Use Standard Drinks/Week Comments Yes 2 (1 standard drink = 0.6 oz pur e alcohol) Sex and Gender Information Value Date Recorded Sex Assigned at Not on file Legal Sex Male 8:44 PM CDT Gender Identity Not on file Sexual Orientation Not on file Last Filed Vital Signs Vital Sign Reading Time Taken Comments Blood Pressure 112/82 04/18/2023 8:35 AM CDT Pulse 91 04/18/2023 8:35 AM CDT Temperature 36.8 C (98.2 F) 04/18/2023 8:35 AM CDT Respiratory Rate 16 04/18/2023 8:35 AM CDT Oxygen Saturation 96% 04/18/2023 8:35 AM CDT Inhaled Oxygen Concentration - - Weight 78.5 kg (173 lb) 03/02/2023 8:21 AM CDT Height 170.2 cm (5' 7 ) 03/02/2023 8:21 AM CDT Body Mass Index 27.1 03/02/2023 8:21 AM CDT Plan of Treatment Health Maintenance Due Date Last Done Comments Colorectal Cancer Screening Colonoscopy (10 Years) 1960 Annual Physical 1963 Hepatitis C 1978 Pneumococcal Vaccine: 50+ Years (1 of 1 - PCV) 2010 Zoster Vaccines (2 of 2) 04/13/2021 02/16/2021 DTaP, Tdap and Td Vaccines ( 2 - Td or Tdap) 05/28/2024 05/28/2014 COVID-19 Vaccine (4 - 2023-2 5 season) 2024 09/30/2021, 01/08/2021, 12/11/2020 PHQ-2 (Physician [place]) 11/26/2024 RSV Immunization or 60+ Years (1 - 1-dose 75+ series) 2035 Meningococcal B Vaccine Aged Out No l onger eligible based on patient's age to complete this topic Meningococcal Vaccine Aged Out No radha yamila eligible based on patient's age to complete this topic RSV Immunizations Under 20 Months Aged Out No longer eligible b ased on patient's age to complete this topic Goals Goal Patient Goal Type Associated Problems Recent Progress Patient-Stated? Author Health - patient able to perform ADLs independently Lifestyle No Rufina Kim, NUCLEAR EQUIPMENT OPERATORdepalletizer operator Devices Implanted Type Area Greeting Card Writer Device Identifier Shelf Expiration Date Model / Serial / Lot F3d Straight Implanted:Qty: 1 on 08/31/2022 by Harry Garland MD at [facility] Cage N/A: Spine Lumbar [id number] 03/31/2026 [id number] / / [id number] Description:CORELINK L5-S1 SPACE F3d Straight Implanted:Qty: 1 on 08/31/2022 by Harry Garland MD at [facility] Cage N/A: Spine Lumbar [employer] [id number] 05/19/2026 [id number] / / [id number] Description:CORELINK L4-L5 SPACE F3d Straight Implanted:Qty: 1 on 08/31/2022 by Harry Garland MD at [facility] Cage N/A: Spine Lumbar [id number] 12/21/2025 [id number] / / [id number] Description:CORELINK L5-S1 SPACE Set Screw Implanted:Qty: 6 on 08/31/2022 by Harry Garland MD at [facility] Screw N/A: Spine Lumbar ORTHOFIX [id number] / / Description:L4-S1 Screw Implanted:Qty: 2 on 08/31/2022 by Harry Garland MD at [facility] Screw N/A: Spine Lumbar ORTHOFIX [id number] / / Description:L4 Screw Implanted:Qty: 2 on 08/31/2022 by Harry Garland MD at [facility] Screw N/A: Spine Lumbar ORTHOFIX [id number] / / Description:L5 Screw Implanted:Qty: 2 on 08/31/2022 by Harry Garland MD at [facility] Screw N/A: Sacrum ORTHOFIX [id number] / / Description:S1 Neck Fusion Body, Top Loading Implanted:Qty: 6 on 08/31/2022 by Harry Garland MD at [facility] N/A: Spine Lumbar ORTHOFIX [id number] / / Barry Implanted:Qty: 2 on 08/31/2022 by Harry Garland MD at [facility] N/A: Spine Lumbar ORTHOFIX [id number] / / Insurance [facility] BLUE [facility] Advance Directives * Full Code (Latest Code Status on File) Date Activated Date Inactivated Comments 03/02/2023 9:54 AM * Full Code Date Activated Date Inactivated Comments 02/24/2023 1:58 AM 02/28/2023 1:09 PM * Full Code Date Activated Date Inactivated Comments 08/31/2022 3:43 PM 09/02/2022 1:23 PM Care Teams Hip Hop Dance Instructor Relationship Specialty Start Date End Date Aureliano Rogers MD [address] [place] [address] PCP - General INTERNAL MEDICINE 08/24/22
--- OUTSIDE RECORDS SUMMARY | 2025-04-06 12:04 | XMS_ITS | Clinical Summary ---
Author Organization [facility] Address [address] [place] [address] Care Team Providers Care Mandarin Teacher Name Role Phone Aureliano Rogers MD Primary Care Provider [phone] Allergies No known active allergies Medications DULoxetine [...] 5mg tablet immediately before MRI. Please have deliver driver to and from MRI. 2 tablet [...] like to see someone in neurosurgery at [facility] to discuss if there are any surgical options available for pain relief. 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 - Lab orders sent to [facility] (CBC, CMP) - Discussed with patient the [...] retained hardware. - Lab orders sent to [facility] (CBC, CMP, ESR, and CRP) - If [...] ESR, CRP to be drawn locally at [facility]. Assessment & Plan (04/16/2023 2:01 PM CDT): [...] identify organism. - We discussed plan for long term care phlebotomist suppression due to retained hardware due to risk of recurrent infection. He is agreeable to plan - Continue weekly CBC, CMP, and CK while on IV antibiotics - Continue to hold statin while on IV daptomycin due to risk of rhabdomyolysis Postoperative infection 02/23/2023 Left hip pain 08/04/2022 salvage determiner (current) use of opiate analgesic 02/25 Degenerative lumbar spinal stenosis 11/17/2021 DDD (degenerative disc disease), lumbar 09/08/20 Lumbar facet arthropathy 09/08/2021 Insomnia secondary to chronic pain 09/08/2021 Sacroiliitis 09/08/2021 Lumbar radiculopathy 09/08/2021 Chronic bilateral low back pain without sciatica 09/08/2021 Contusion of right clavicle 03/28/2019 Rotator cuff strain, right, initial encounter 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 Numbness of lower extremity 10/14/2015 Encounters Date Type Department Care Team Description 02/11/2025 3:00 PM CDT Office Visit [facility] Infectious Diseases [address] [place] [id number] Tori Ramirez NP Infection of deep incisional surgical site after procedure, subsequent encounter (Primary Dx) 01/14/2025 10:26 AM INSTRUCTOR HAIRSPRING - 01/14/2025 11:59 PM INSTRUCTOR HAIRSPRING Hospital Encounter [facility] [address] [address] [place] [address] Светлана Andrews NP Degeneration of intervertebral disc of lumbar region with discogenic back pain (Primary Dx); salvage determiner (current) use of opiate analgesic; Degenerative lumbar spinal stenosis Discharge Disposition: Discharge to home or self care from Last 3 Months Immunizations Immunization Administration Dates Next Due Influenza, Quadrivalent, Ana Maria l Culture-based MDCK, Preservative Free, Antibiotic Free, Intramuscular 09/02/2020 Influenza, Quadrivalent, Spl it, Intramuscular 10/18/2016,08/26/2014 Influenza, Quadrivalent, Spl it, Preservative Free, Intramuscular 09/15/2019,08/31/2018,08/30/2018 Influenza, Trivalent, IM (MDV) 08/20/2021 Influenza, Trivalent, Preser vative Free, Intramuscular 09/23/2015 Tdap 05/28/2014 ZOSTER Recombinant 02/16/2021 Medical History Medical History Date Comments Arthritis Low back pain Joint pain Neck pain Anxiety Asthma Cervical disc disease Disc disorder of lumbar region Family History Medical History Relation Name Comments Heart disease Brother Cancer Father Cancer Maternal Grandfather Cancer Maternal Grandmother Cancer Mother Cancer Paternal Grandfather Cancer Paternal Grandmother Relation Name Status Comments Brother Father Maternal Grandfather Maternal Grandmother Mother Paternal Grandfather Paternal Grandmother Social History Tobacco Use Types Packs/Day Years [...] on file Legal Sex Male 1:56 AM INSTRUCTOR HAIRSPRING Gender Identity Male 08/25/2024 9:56 AM CDT Sexual Orientation Straight 08/25/2024 9: 56 AM CDT Obstetrics History Last Filed Vital Signs Vital Sign Reading Time Taken Comments Blood Pressure 115/75 02/11/2025 2:48 PM CDT Pulse 84 02/11/2025 2:48 PM CDT Temperature 36.7 C (98 F) 02/11/2025 2:48 PM CDT Respiratory Rate 18 01/14/2025 10:46 AM INSTRUCTOR HAIRSPRING Oxygen Saturation 96% 02/11/2025 2:48 PM CDT Inhaled Oxygen Concentration - - Weight 86 kg (189 lb 9.6 oz) 02/11/2025 2:48 PM CDT Height 170.2 cm (5' 7.01 ) 02/11/2025 2:48 PM CD T Body Mass Index 29.69 02/11/2025 2:48 PM CDT Plan of Treatment Health Maintenance Due Date Last Done Comments Hepatitis C Screening 1960 Prostate Cancer Screening-PSA 1960 Hepatitis B Screening 1978 Regular Well Visit/Exam 18-64 1978 Zoster Vaccine (2 of 2) 04/13/2021 02/16/2021 Colon Cancer Screening-Colonoscopy 07/04/2021 07/04/2011 DTaP/Tdap/Td Vaccine (2 - Td or Tdap) 05/28/2024 05/28/2014 Covid-19 Vaccine (3 - season) 2024 01/08/2021, 12/11/2020 Influenza Vaccine (Season Ended) 2025 08/20/2021, 09/02/2020, 09/15/2019, Additional history exists Depression Screening 01/14/2026 01/14/2025, 01/14/2025, 10/29/2024, Additional history exists Colon Cancer Screening-CT Colonography Discontinued 07/04/2011 Colon Cancer Screening-DNA Stool Discontinued 07/04/2011 Colon Cancer Screening-FIT Discontinued 07/04/2011 Colon Cancer Screening-Sigmoidoscopy Discontinued 07/04/2011 Pneumococcal vaccine <65 Aged Out No longer eligible based on patient's age to complete this topic Goals Goal Patient Goal Type Associated Problems Recent Progress Patient-Stated? Author [facility] Improving( 2:16 PM INSTRUCTOR HAIRSPRING) Radha Keita RN Note: Patient will establish a comfort-function goal [...] Ordered by an unspecified provider. Procedure Note ProviderJose Francisco MD - 07/04/2011 12:00 AM CDT PROCEDURE REPORT Patient: QASIM DE LOS SANTOS. Account: [id number] Room No: : 1960 Patient Type: [facility] Attend.: Bolivar Florian M.D. Admit Date: 07/04/2011 Dict.: Bolivar Florian M.D. Disch. Date: NAME OF PROCEDURE: Colonoscopy. HISTORY: This is a 51-year-old male who presents for screeningcolonoscopy. PHYSICAL EXAMINATION: GENERAL: Well developed male. LUNGS: Clear. CARDIOVASCULAR: Unremarkable. PROCEDURE: Colonoscopy was performed with a e27 video endoscope.The patient was premedicated by anesthesia. On digital exam, he has got gradeII hemorrhoids. We inserted the endoscope and advanced it to the cecum.The colon was well prepped, well visualized and looked normal. The patient tolerated the procedure without difficulty. POSTOPERATIVE DIAGNOSIS: Normal colonoscopy. Bolivar Florian M.D. DR/juant TD: 07/04/2011 17:16 PROCEDURE REPORT Authenticated by Bolivar Florian MD On 07/06/2011 09:26:17 AM Historical Provider ENDOSCOPY PROCEDURES Naheed l Result from Last 3 Months or Most Recently Relevant to Health Maintenance Insurance [employer] Care Teams Mandarin Teacher Relationship Specialty Start Date End Date Aureliano Rogers MD [facility] - General 03/28/19
--- OUTSIDE RECORDS SUMMARY | 2025-04-06 12:04 | XMS_ITS | Encounter Summary ---
Author Organization [facility] Address [address] [facility] [address] [place] [address] Phone Care Team Providers Care Physician [facility] Name Role Phone Aureliano Rogers MD Primary Care Provider [phone] Encounter Details Date Type Department Care Team (Late st Contact Info) Description 11/12/2024 Telephone [facility] Neurosurgery [address] [place] [address] Himanshu Olmos MD [address] [place] [address] Social History Tobacco Use Types Packs/Day Years Used Date Smoking Tobacco: Former Smokeless Tobacco: Current Chew Alcohol Use Standard Drinks/Week Comments Not Currently [...] on file Legal Sex Male 1:56 AM KICKING MACHINE 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 Pt was made aware of appt details ING MACHINE OPERATOR documented in this encounter Plan of Treatment Not on file documented as of this encounter Goals Goal Patient Goal Type Associated Problems Recent Progress Patient-Stated? Author [facility] Improving( 2:16 PM KICKING MACHINE OPERATOR) No Radha Bonilla, NESTOR Note: Patient will establish a comfort-function goal and identify the pain level that will allow the patient to perform desired activities and achieve an acceptable quality of life. documented as of this encounter Visit Diagnoses Not on filedocumented in this encounter Care Teams Physician [facility] Relationship Specialty Start Date End Date Aureliano Rogers MD PCP - General 03/28/19 documented as of this encounter
--- OUTSIDE RECORDS SUMMARY | 2025-04-06 12:04 | XMS_ITS | Clinical Summary ---
Author Organization [facility] Address [address] [place] [address] Care Team Providers Care Fiction And Nonfiction Author Name Role Phone Unavailable Primary Care Provider Unavailabl e Source Comments [facility],non-owned Affiliates and Associated Physician Practices is amultiple site organization consisting of ambulatory clinics and hospital sitesin [place], [place], [place] and [place]. This disclosure is being madepursuant to the Care Everywhere program and may not contain all information available regarding this patient. Last updated 18.[facility] [employer] Social History Tobacco Use Types Packs/Day Years Used Date Smoking Tobacco: Never Assessed Sex and Gender Information Value Date Recorded Sex Assigned at Not on file Legal Sex Male 4:14 PM CDT Gender Identity Not on file Sexual Orientation Not on file Last Filed Vital Signs Vital Sign Reading Time Taken Comments Blood Pressure 121/79 06/26/2016 4:24 PM CDT Pulse 90 06/26/2016 4:24 PM CDT Temperature 36.7 C (98 F) 06/26/2016 4:24 PM CDT Respiratory Rate 18 06/26/2016 4:24 PM CDT Oxygen Saturation 98% 06/26/2016 4:24 PM CDT Inhaled Oxygen Concentration - - Weight - - Height - - Body Mass Index - - Plan of Treatment Health Maintenance Due Date Last Done Comments COLOGUARD (AGES 45-75) - COL ON CA SCREENING 1960 COLON MONITORING 1960 COLONOSCOPY - COLON CA SCREENING 1960 CT COLONOGRAPHY - COLON CA SCREENING 1960 Colorectal Cancer Screening 1960 FIT - COLON CA SCREENING 1960 FLEX SIG - COLON CA SCREENING 1960 LIPID TESTING 1960 HIV SCREENING 1975 HEPATITIS C SCREENING 05/04/1978 DTAP/TDAP/TD VACCINES (1 - Tdap) 1979 PNEUMOCOCCAL VACCINE 50+ (1 of 1 - PCV) 2010 ZOSTER VACCINE (1 of 2) 2010 COVID-19 VACCINE (1 - 2023-2 5 season) 2024 DEPRESSION SCREENING 11/26/2024 INFLUENZA VACCINE (Season Ended) 2025 Respiratory Syncytial Virus (RSV) Vaccine Pt: or over 60 yrs (1 - 1-dose 75+ series) 2035 HEPATITIS B VACCINE Aged Out No longe r eligible based on patient's age to complete this topic HIB VACCINE Aged Out No longer eligi ble based on patient's age to complete this topic HPV VACCINE Aged Out No longer eligi ble based on patient's age to complete this topic MENINGOCOCCAL (Group B) VACC INE SHARED DECISION-MAKING Aged Out No longer eligibl e based on patient's age to complete this topic MENINGOCOCCAL GROUPS A/C/Y/W VACCINE Aged Out No longer eligible b ased on patient's age to complete this topic Insurance [facility]
[2025-04-06 12:20] LABS: Add Urine Microscopic? NO; Appearance Urine Clear (Clear); Bilirubin Urine Negative (Negative); Blood Urine Negative (Negative); Color Urine Light Yellow (Yellow); Glucose Urine UA Negative (Negative); Hematocrit 46.3 % (40.0-54.0); Hemoglobin 14.9 g/dL (14.0-18.0); Ketones Urine Negative (Negative); Leukocyte Esterase Ur Negative (Negative); Mean Corpuscular HGB Conc 32.2 g/dL (32-36); Mean Corpuscular Hemoglobin 28.3 pg (27.0-31.0); Mean Corpuscular Volume 87.9 fL (78.0-102.0); Mean Platelet Volume 8.8 fl (8.7-11.0); Nitrate Urine Negative (Negative); Platelet Count Result 250 K/mm3 (150-420); Protein Urine Negative (Negative); Red Blood Count 5.27 M/mm3 (4.70-6.10); Red Cell Distribution Width 12.3 % (11.6-14.4); Urobilinogen Urine 0.2 mg/dL (0.2-1.0); White Blood Count 5.5 K/mm3 (4.8-10.8)
[2025-04-06 13:24] LABS: Anion Gap 7 mmol/L (4-12); Carbon Dioxide 28 mmol/L (22-30); Chloride 104 mmol/L (98-107); Potassium 5.4 mmol/L (3.4-5.0); Sodium 139 mmol/L (137-145)
[2025-04-06 13:25] LABS: Alanine Aminotransferase 27 U/L (6-50); Albumin Level 4.4 g/dL (3.5-5.1); Alkaline Phosphatase 48 U/L (38-126); Aspartate Amino Transferase 27 U/L (17-59); Bilirubin,Total 0.4 mg/dL (0.2-1.3); Blood Urea Nitrogen 12 mg/dL (9-20); Calcium 9.5 mg/dL (8.4-10.2); Cholesterol 187 mg/dL (0-200); Estimated Glomerular Filt Rate > 60; Glucose 99 mg/dL (65-110); HDL Direct 43 mg/dL; LDL Cholesterol Calculated 112 mg/dL (<130); Osmolality Calculated 287 mOsm/kg (285-295); Total Protein 6.9 g/dL (6.3-8.2); Triglycerides 162 mg/dL (<150)
[2025-04-06 14:24] LABS: CRP < 0.5 mg/dL (<1.0)
[2025-04-06 14:52] LABS: Prostate Specific Antigen 3.9 ng/mL (< OR = 4.0); Thyroid Stimulating Hormone 0.687 uIU/mL (0.465-4.680)
== END 2025-04-06 12:00 | disposition home or self-care (01) ==
LOC: CHSLAB 12:02
PROVIDERS: PCP Internal Medicine; Visit Provider Internal Medicine
DX: Z00.00 Encounter for general adult medical examination without abnormal findings (principal); N40.0 Benign prostatic hyperplasia without lower urinary tract symptoms; M54.50 Low back pain, unspecified
CPT/HCPCS: 36415; 80053; 80061; 81003; 84153; 84443; 85027; 86140; G0103

== ENCOUNTER 2025-04-23 02:02 | Day surgery (SDC) | payer BC, SELFPAY ==
[2025-04-14 11:58] VITALS: BMI 27.3
--- OUTSIDE RECORDS SUMMARY | 2025-04-23 02:10 | XMS_ITS | Clinical Summary ---
Author Organization [facility] Address [address] [place] [address] Care Team Providers Care Cloth Seconds Sorter Name Role Phone Unavailable Primary Care Provider Unavailabl e Source Comments [facility],non-owned Affiliates and Associated Physician Practices is amultiple site organization consisting of ambulatory clinics and hospital sitesin [place], [place], [place] and [place]. This disclosure is being madepursuant to the Care Everywhere program and may not contain all information available regarding this patient. Last updated 18.[facility] [employer] Social History Tobacco Use Types Packs/Day Years [...] patient's age to complete this topic Insurance [facility][note 2][address]
--- OUTSIDE RECORDS SUMMARY | 2025-04-23 02:10 | XMS_ITS | Clinical Summary ---
Author Organization [facility] Address [address] [place] [address] Phone Care Team Providers Care Sanitation Superintendent Name Role Phone Aureliano Rogers MD Primary Care Provider [phone] Allergies No known active allergies Medications meloxicam [...] A DAY NEEDED FOR PAIN. [place] 12/06/2023 Active methocarbamol (ROBAXIN) 750 MG [...] Comments Blood Pressure 108/80 01/12/2024 9:36 AM HYDROCHLORIC AREA SUPERVISOR Pulse 94 01/12/2024 9:36 AM HYDROCHLORIC AREA SUPERVISOR Temperature 36.8 C (98.3 F) 01/12/2024 9:36 AM HYDROCHLORIC AREA SUPERVISOR Respiratory Rate 18 01/12/2024 9:36 AM HYDROCHLORIC AREA SUPERVISOR Oxygen Saturation 98% 01/12/2024 9:36 AM HYDROCHLORIC AREA SUPERVISOR Inhaled Oxygen Concentration - - Weight 83.5 kg (184 lb) 01/12/2024 9:36 AM HYDROCHLORIC AREA SUPERVISOR Height - - Body Mass Index - [...] patient's age to complete this topic Insurance [facility] Care Teams Sanitation Superintendent Relationship Specialty Start Date End Date Aureliano Rogers MD [address] [place] [address] PCP - General Internal Medicine 03/02/21
--- OUTSIDE RECORDS SUMMARY | 2025-04-23 02:10 | XMS_ITS | Clinical Summary ---
Author Organization [facility] Address [address] [place] [address] Care Team Providers Care Editorial Project Manager Name Role Phone Aureliano Rogers MD Primary Care Provider [phone] Allergies No known active allergies Medications DULoxetine [...] 5mg tablet immediately before MRI. Please have lyft driver to and from MRI. 2 tablet 11/12/20 24 Active gabapentin (NEURONTIN) 300 mg capsuleIndication s:Chronic bilateral low back pain without sciatica,Lumbar radiculopathy Take 1 capsule (300 mg total) by mouth 3 (three) times a day 90 capsule 3 01/14/20 25 025 Active amoxicillin-clavu lanate (AUGMENTIN) 875-125 [...] times a day as needed for pain 80 tablet 06/21/20 25 025 Active HYDROcodone-aceta minophen (NORCO) 10-325 mg per tabletIndications :Pain Take 1 tablet by mouth 3 (three) times a day as needed for pain 90 tablet 05/22/20 25 025 Active HYDROcodone-aceta minophen (NORCO) 10-325 mg per tabletIndications :Pain Take 1 tablet by mouth 3 (three) times a day as needed for pain 80 tablet 04/22/20 25 025 Active HYDROcodone-aceta minophen (NORCO) 10-325 mg per tabletIndications :Pain Take 1 tablet by mouth 3 (three) times a day as needed for pain 90 tablet 03/03/20 25 025 HYDROcodone-aceta minophen (NORCO) 10-325 mg per tabletIndications :Pain Take 1 tablet by mouth 3 (three) times a day as needed for pain 90 tablet 04/02/20 25 025 Discontinu ed(Reorder ) Active Problems Problem Noted Date Diagnosed Date [...] like to see someone in neurosurgery at [facility] to discuss if there are any surgical options available for pain relief. 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 - Lab orders sent to [facility] (CBC, CMP) - Discussed with patient the [...] retained hardware. - Lab orders sent to [facility] (CBC, CMP, ESR, and CRP) - If [...] ESR, CRP to be drawn locally at [facility]. Assessment & Plan (04/16/2023 2:01 PM CDT): [...] identify organism. - We discussed plan for longterm suppression due to retained hardware due to risk of recurrent infection. 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 (Primary Dx); Degenerative lumbar spinal stenosis; Lumbar radiculopathy Discharge Disposition: Discharge to home or self care 04/22/2025 Orders Only [facility] Neurosurgery [address] [place] [address] Office [facility] [address] [place] [address] Himanshu Olmos MD Degenerative lumbar spinal stenosis (Primary Dx) 04/15/2025 11:15 AM CDT Office Visit [facility] Neurosurgery [address] [place] [address] Office [facility] [address] [place] [address] Himanshu Olmos MD Degenerative lumbar spinal stenosis (Primary Dx) 04/15/2025 10:36 AM CDT - 04/15/2025 11:59 PM CDT Hospital Encounter [id number] [address] [place] [address] [address] [place] [address] Degenerative lumbar spinal stenosis Discharge Disposition: Discharge to home or self care 04/15/2025 Telephone [facility] Neurosurgery [address] [place] [address] Office [facility] [address] [place] [address] Himanshu Olmos MD 04/07/2025 Orders Only [facility] Neurosurgery [address] [place] [address] Office [facility] [address] [place] [address] Himanshu Olmos MD Degenerative lumbar spinal stenosis (Primary Dx) 02/11/2025 3:00 PM CDT Office Visit [facility] Infectious Diseases [address] [place] [address] [address] [place] [address] Tori Ramirez, NANDO Infection of deep incisional surgical site after procedure, subsequent encounter (Primary Dx) from Last 3 Months Immunizations Immunization Administration [...] points, staff should administer the PHQ-9) 0 04/22/2025 PHQ-9 Answer Date Recorded PHQ-9 Total Score 2 04/22/2025 Sex and Gender Information Value Date Recorded Sex Assigned at Not on file 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 Gender Identity Male 08/25/2024 9:56 AM CDT Sexual Orientation Straight 08/25/2024 9: 56 AM CDT Obstetrics History Last Filed Vital Signs Vital Sign Reading Time Taken Comments Blood Pressure 118/72 04/22/2025 9:19 AM CDT Pulse 74 04/22/2025 9:19 AM CDT Temperature 36.7 C (98 F) 02/11/2025 2:48 PM CDT Respiratory Rate 16 04/22/2025 9:19 AM CDT Oxygen Saturation 97% 04/22/2025 9:19 AM CDT Inhaled Oxygen Concentration - - Weight 84.4 kg (186 lb) 04/15/2025 10:55 AM CDT Height 170.2 cm (5' 7.01) 02/11/2025 2:48 PM CD T Body Mass Index 29.12 02/11/2025 2:48 PM CDT Plan of Treatment Scheduled Procedures Name Priority Associated Diagnoses Date/Ti me FUSION SPINAL - POSTERIOR LUMBAR/THORACIC WITH INSTRUMENTATION Degenerative lumbar spinal stenosis REMOVAL HARDWARE SPINE Degenerative lumbar spinal stenosis OSTEOTOMY POSTERIOR SPINAL Degenerative lumbar spinal stenosis SPINAL CORD MONITORING Degenerative lumbar spinal stenosis Health Maintenance Due Date Last Done Comments [...] 09/02/2020, 09/15/2019, Additional history exists Depression Screening 04/22/2026 04/22/2025, 04/22/2025, 01/14/2025, Additional history exists Colon Cancer Screening-CT Colonography Discontinued 07/04/2011 Colon Cancer Screening-DNA Stool Discontinued 07/04/2011 Colon Cancer Screening-FIT Discontinued 07/04/2011 Colon Cancer Screening-Sigmoidoscopy Discontinued 07/04/2011 Pneumococcal vaccine <65 Aged Out No longer eligible based on patient's age to complete this topic Goals Goal Patient Goal Type Associated Problems Recent Progress Patient-Stated? Author BH-Pain Behavioral Health Improving( 2:16 PM PROCESS HELPER) No Irene, Radha Aram, NESTOR Note: Patient will establish a comfort-function goal and identify the pain level that will allow the patient to perform desired activities and achieve an acceptable quality of life. Procedures Procedure Name Priority Date/Time Associated Diagnosis Comments XR SCOLIOSIS AP LAT Schedule Routine, Read Routine (OP Routine) 04/15/2025 10:42 AM CDT Degenerative lumbar spinal stenosis COLONOSCOPY 07/04/2011 12:00 AM CDT from Last 3 Months or Most Recently Relevant to Health Maintenance Results * XR Scoliosis Ap and Lateral (04/15/2025 10:42 AM CDT) Anatomical Region Laterality Modality Spine N/A Computed Radiogr aphy 04/15/2025 1:33 PM CDT Impressions 04/15/2025 3:20 PM CDT 1. Unchanged postoperative changes of posterior and interbody fusion from L4 S1 with severe degenerative disc disease at L3-L4. 2. No significant scoliosis. Dictated by: Chavez Shah M.D. The radiology attending physician has personally reviewed this study, and had reviewed and/or edited this written report and agrees with it. Electronically signed by: Len Baum D.O. Narrative 04/15/2025 3:20 PM CDT EXAMINATION: XR SCOLIOSIS AP AND LATERAL HISTORY: Status post fusion FINDINGS: Standing frontal and lateral radiographs of the entire spine and lower extremities were obtained using the EOS system. 2 additional radiographs of the entire spine are submitted for interpretation. Comparison is made to 05/01/2024 radiographs. There are postsurgical changes of posterior spinal fusion from L4 through S1 with interbody spacer placement at L4-L5 and L5-S1, unchanged from prior. Hardware is intact. Minimal levocurvature of the thoracic spine with minimal dextrocurvature of the unfused lumbar spine. There is no coronal imbalance. There is no pelvic obliquity. There is mild positive sagittal imbalance. There is osseous fusion of the C5-C6 vertebral bodies. There is mild multilevel degenerative changes of the cervical and thoracic spine, worst at C6-C7. There is degenerative disc disease of the lumbar spine at the unfused levels, worst and severe at L3-L4. Vertebral body heights are maintained. Procedure Note Len Baum DO - 04/15/2025 EXAMINATION: XR SCOLIOSIS AP AND LATERAL HISTORY: Status post fusion FINDINGS: Standing frontal and lateral radiographs of the entire spine and lower extremities were obtained using the EOS system. 2 additional radiographs of the entire spine are submitted for interpretation. Comparison is made to 05/01/2024 radiographs. There are postsurgical changes of posterior spinal fusion from L4 through S1 with interbody spacer placement at L4-L5 and L5-S1, unchanged from prior. Hardware is intact. Minimal levocurvature of the thoracic spine with minimal dextrocurvature of the unfused lumbar spine. There is no coronal imbalance. There is no pelvic obliquity. There is mild positive sagittal imbalance. There is osseous fusion of the C5-C6 vertebral bodies. There is mild multilevel degenerative changes of the cervical and thoracic spine, worst at C6-C7. There is degenerative disc disease of the lumbar spine at the unfused levels, worst and severe at L3-L4. Vertebral body heights are maintained. IMPRESSION: 1. Unchanged postoperative changes of posterior and interbody fusion from L4 S1 with severe degenerative disc disease at L3-L4. 2. No significant scoliosis. Dictated by: Chavez Shah M.D. The radiology attending physician has personally reviewed this study, and had reviewed and/or edited this written report and agrees with it. Electronically signed by: Len Baum D.O. Himanshu Olmos MD IMG XR PROCEDURES Final Result * COLONOSCOPY (07/04/2011 12:00 AM CDT) Anatomical Region Laterality Modality Other Narrative 07/04/2011 12:00 AM CDT Ordered by an unspecified provider. Procedure Note ProviderJose Francisco MD - 07/04/2011 12:00 AM CDT PROCEDURE REPORT Patient: QASIM DE LOS SANTOS Account: [id number] Room No: : 1960 Patient Type: OPA Attend.: Bolivar Florian M.D. Admit Date: 07/04/2011 Dict.: Bolivar Florian M.D. Disch. Date: NAME OF PROCEDURE: Colonoscopy. HISTORY: This is a 51-year-old male who presents for screeningcolonoscopy. PHYSICAL EXAMINATION: GENERAL: Well developed male. LUNGS: Clear. CARDIOVASCULAR: Unremarkable. PROCEDURE: Colonoscopy was performed with a Seadev-FermenSys video endoscope.The patient was premedicated by anesthesia. [...] Most Recently Relevant to Health Maintenance Insurance [employer] [place] [employer] [facility] Care Teams Editorial Project Manager Relationship Specialty Start Date End Date Aureliano Rogers MD PCP - General 03/28/19
--- OUTSIDE RECORDS SUMMARY | 2025-04-23 02:10 | XMS_ITS | Encounter Summary ---
Author Organization [facility] Address [address] [facility] [address] [place] [address] Phone Care Team Providers Care Trader Name Role Phone Aureliano Rogers MD Primary Care Provider [phone] Reason for Referral * Diagnostic Imaging (Routine) - Authorized Specialty Diagnoses / Procedures Referred By Contac t Referred To Contact Diagnoses Degenerative lumbar spinal stenosis Procedures DEXA Axial Skeleton Bone Density Multi Site Himanshu Olmos MD [address] [place] [address] Phone: tel: fax: [facility] (All Locations) Referral ID Status Reason Start Date Expiration Date V isits Requested Visits Authorized [id number] Authorized 04/15/2025 05/15/2026 1 1 * Consultation (Routine) - Pending Review Specialty Diagnoses / Procedures Referred By Contac t Referred To Contact Physical Therapy Diagnoses Degenerative lumbar spinal stenosis Himanshu Olmos MD [address] [place] [address] Phone: tel: fax: External Order Referral ID Status Reason Start Date Expiration Date Visits Requested Visits Authorized [id number] Pending Review Specialty Services Required 04/15/2025 05/15/2026 24 24 Question Answer PTRFR PT Evaluate and Treat Therapy options discussed with patient? Yes Location provided for therapy services is: Patient requested/Patient preferred Please select the performing region: External Order [171] # of visits: 24 Comments Special Instructions/Orders: Back, core -stretching,strengthening,gluteal strengthening and ROM. Frequency 2X/week Duration: 6-8 weeks Please fax to [phone] Encounter Details Date Type Department Care Team (Late st Contact Info) Description 04/15/2025 Telephone [facility] Neurosurgery [address] 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 Gender Identity Male 08/25/2024 9:56 AM CDT Sexual Orientation Straight 08/25/2024 9: 56 AM CDT documented as of this encounter Miscellaneous Notes * Telephone Encounter - Haleigh Kearns - 04/22/2025 8:16 AM CDT SURGERY SCHEDULERS CHECK LIST *Date of Surgery/Loc: 08/31 pt request *Surgery name: Extension of fusion up to L2 and pelvis, removal of L4-SI hardware and L3/L4 Posterior Column Osteotomy (PCO) CTC 8 HOURS *Combo case:[]Yes [x]NO PSO[] ALIF[] ENT[] PLASTICS[] *Arrival time confirmed: []Yes []NO [x]TBD *Pre-Op Testing scheduled: []MRI: CENTRAL LINE 08/28 @ 2PM [x]PT scheduled Date: Dexa 06/04 @ 2:30 []CT: Date: OTHER: *Email sent for equipment Monitoring or Reps:[x]Yes []NO Date sent: 04/22 *CPAP scheduled: [x]Yes []NO []N/A Date: 08/20 @ 12:30 *Post op appointment made: [x]Yes []NO []N/A Date/Time: 10/14 @ 10 *Patient notified of all pre & post surgical appointment details: []Phone [x]My chart *Surgical Clearance letter sent to specialist: []Yes []NO [x]N/A [] [] *On MD Calendar: [x] Yes []No If no, reason why *Add to spreadsheet [x]Yes []NO *Open case - enter DOS, = []Yes []NO 90 days out * Telephone Encounter - Malena Timmons RN - 04/17/2025 10:26 AM CDT Procedure Date: TBD Location: [x]BJ []BWC [x]CPAP []TPAP []IPAP Prep for case entered [x] Yes [] No Mupirocin sent [] Yes [x] No (will send closer to sx) Surgical scrub sent [] Yes [x] No On MD calendar [] Yes [x] No OR arrival time given to pt [] Yes [x] No Pt notified of CPAP and imaging dates times [] Yes [x] No Imaging needed prior to surgery: Pre-op Testing required[]N/A []MRI []CT [x]Dexa [x]PT Post op appointment timeframe requirements 2 week[] 4 week [] 6 week [x] Other: Patient on anticoagulants []Yes [x]No []ASA []Prescribed anticoagulant Denies aspirin, blood thinners, or NSAIDs Start Riluzole 5 days prior-script to be sent closer to sx Surgery Clearance needed: [x]NA or [] General(PCP) [] Cardiac [] Other OR Consent/Surgery packet status: []In progress [x]Scanned by dental front office assistant Notes/Other: * Telephone Encounter - Maria Esther Samuels CMA - 04/15/2025 12:41 PM CDT [facility] SURGERY SCHEDULING CHECK LIST Visit Type: [] TELEMED [x] IN CLINIC Nurse Education done in Clinic: [x] YES [] NO LOCATION: [x] [facility] Surgery Name: Extension of fusion up to L2 and pelvis, removal of L4-SI hardware and L3/L4 Posterior Column Osteotomy (PCO) Date Given: [] YES() [x] NO Consent signed: [x] By MD [x] By patient [] CM to sign and obtain CTC EOD If no, reason why: Equipment sheet completed with cut to close: () [x] Yes [] If no, reason why Equipment sheet scanned: [x] Yes Signed Consent scanned: [x] Yes Name of equipment Monitoring or Reps:[]Yes []NO [x]N/A Pre-Op Testing needed: []MRI: [] Order entered []CT: [] Order entered [x]Dexascan [x] Order entered []EMG [] Order entered []Pre op Angiogram [] Order entered []Intraop Angiogram [] Order entered []Audiogram [] Order entered ([id number] [facility] 11th floor [address]) [x]N/A Post op XR orders entered: []Yes [x]N/A Surgery packet/ guidelines given to patient [x]Yes []No If no, reason why? -PT documented in this encounter Plan of Treatment Scheduled Orders Name Type Priority Associated Diagnoses Orde r Schedule DEXA Axial Skeleton Bone Density Multi Site Imaging Schedule Routine, Read Routine (OP Routine) Degenerative lumbar spinal stenosis Expected: 04/15/2025, Expires: 04/15/2026 Scheduled Procedures Name Priority Associated Diagnoses Date/Ti me FUSION SPINAL - POSTERIOR LUMBAR/THORACIC WITH INSTRUMENTATION Degenerative lumbar spinal stenosis REMOVAL HARDWARE SPINE Degenerative lumbar spinal stenosis OSTEOTOMY POSTERIOR SPINAL Degenerative lumbar spinal stenosis SPINAL CORD MONITORING Degenerative lumbar spinal stenosis Scheduled Referrals Name Type Priority Associated Diagnoses Order Schedule Ambulatory referral order to Physical Therapy - Outpatient Referral Routine Degenerative lumbar spinal stenosis Expected: 04/29/2025 (Approximate), Expires: 04/15/2026 documented as of this encounter Goals Goal Patient Goal Type Associated Problems Recent Progress Patient-Stated? Author BH-Pain Behavioral Health Improving( 2:16 PM HOME PLANNING CONSULTANT SALESPERSON) Radha Keita, NESTOR Note: Patient will establish a comfort-function goal and identify the pain level that will allow the patient to perform desired activities and achieve an acceptable quality of life. documented as of this encounter Visit Diagnoses Diagnosis Degenerative lumbar spinal stenosis- Primary Spinal stenosis of lumbar region documented in this encounter Care Teams Trader Relationship Specialty Start Date End Date Aureliano Rogers MD PCP - General 03/28/19 documented as of this encounter
--- OUTSIDE RECORDS SUMMARY | 2025-04-23 02:10 | XMS_ITS | Encounter Summary ---
Author Organization [facility] Address [address] [place] [address] Phone Care Team Providers Care Lapidarist Name Role Phone Aureliano Rogers MD Primary Care Provider [phone] Reason for Referral * Diagnostic Imaging (Routine) - Pending Review Specialty Diagnoses / Procedures Referred By Contac t Referred To Contact Radiology Diagnoses Degenerative lumbar spinal stenosis Procedures IR Central Line Placement > 5 Years Himanshu Olmos MD [address] [place] [address] Phone: tel: fax: [address] [address] Referral ID Status Reason Start Date Expiration Date V isits Requested Visits Authorized [id number] Pending Review 04/22/2025 05/22/2026 1 1 Encounter Details Date Type Department Care Team (Late st Contact Info) Description 04/22/2025 Orders Only [facility] Neurosurgery [address] [facility] [address] [place] [address] Himanshu Olmos MD [address] [place] [address] Degenerative lumbar spinal stenosis (Primary Dx) Social History Tobacco Use Types Packs/Day Years [...] on file 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 Gender Identity Male 08/25/2024 9:56 AM CDT Sexual Orientation Straight 08/25/2024 9: 56 AM CDT documented as of this encounter Plan of Treatment Scheduled Orders Name Type Priority Associated Diagnoses Orde r Schedule IR Central Line Placement > 5 Years Imaging Schedule Routine, Read Routine (OP Routine) Degenerative lumbar spinal stenosis Expected: 04/22/2025, Expires: 04/22/2026 Scheduled Procedures Name Priority Associated Diagnoses Date/Ti me FUSION SPINAL - POSTERIOR LUMBAR/THORACIC WITH INSTRUMENTATION Degenerative lumbar spinal stenosis REMOVAL HARDWARE SPINE Degenerative lumbar spinal stenosis OSTEOTOMY POSTERIOR SPINAL Degenerative lumbar spinal stenosis SPINAL CORD MONITORING Degenerative lumbar spinal stenosis documented as of this encounter Goals Goal Patient Goal Type Associated Problems Recent Progress Patient-Stated? Author -Pain Behavioral Health Improving( 2:16 PM SOLAR POWER INSTALLER) Radha Keita, NESTOR Note: Patient will establish a comfort-function goal and identify the pain level that will allow the patient to perform desired activities and achieve an acceptable quality of life. documented as of this encounter Visit Diagnoses Diagnosis Degenerative lumbar spinal stenosis- Primary Spinal stenosis of lumbar region documented in this encounter Care Teams Lapidarist Relationship Specialty Start Date End Date Aureliano Rogers MD PCP - General 03/28/19 documented as of this encounter
--- OUTSIDE RECORDS SUMMARY | 2025-04-23 02:10 | XMS_ITS | Referral Summary ---
Author Organization [facility] Address [address] [place] [address] Care Team Providers Care R And D Lab Technician Name Role Phone Aureliano Rogers MD Primary Care Provider [phone] Encounters Date Type Department Care Team Description 04/22/2025 Orders Only [facility] Neurosurgery [address] [place] [address] 4 [address] [place] [phone] Himanshu Olmos MD Degenerative lumbar spinal stenosis (Primary Dx) 04/22/2025 9:01 AM CDT - 04/22/2025 11:59 PM CDT Hospital Encounter [facility] 2 [facility] A, [place] [id number] Светлана Andrews NP [facility] (current) use of opiate analgesic (Primary Dx); Degenerative lumbar spinal stenosis; Lumbar radiculopathy Discharge Disposition: Discharge to home or self care 04/15/2025 Telephone [facility] Neurosurgery [address] [place] [address] Office [facility] [address] [place] [address] Himanshu Olmos MD 04/15/2025 10:36 AM CDT - 04/15/2025 11:59 PM CDT Hospital Encounter [facility] [address] [place] [address] [address] [place] [phone] Degenerative lumbar spinal stenosis Discharge Disposition: Discharge to home or self care 04/15/2025 11:15 AM CDT Office Visit [facility] Neurosurgery [address] [place] [address] Building [address] [place] [address] Himanshu Olmos MD Degenerative lumbar spinal stenosis (Primary Dx) 04/07/2025 Orders Only [facility] Neurosurgery [address] [facility] Building [address] [place] [address] Himanshu Olmos MD Degenerative lumbar spinal stenosis (Primary Dx) 02/11/2025 3:00 PM CDT Office Visit [facility] Infectious Diseases [address] [place] [address] [address] [place] [address] Tori Ramirez NP Infection of deep incisional surgical site after procedure, subsequent encounter (Primary Dx) from Last 3 Months Allergies No known [...] 5mg tablet immediately before MRI. Please have driver merchandiser to and from MRI. 2 tablet 11/12/20 [...] like to see someone in neurosurgery at [facility] to discuss if there are any surgical options available for pain relief. 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 - Lab orders sent to [facility] (CBC, CMP) - Discussed with patient the [...] retained hardware. - Lab orders sent to [facility] (CBC, CMP, ESR, and CRP) - If [...] ESR, CRP to be drawn locally at [facility]. Assessment & Plan (04/16/2023 2:01 PM CDT): [...] identify organism. - We discussed plan for retirement suppression due to retained hardware due to risk of recurrent infection. 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 Author BH-Pain Behavioral Health Improving( 2:16 PM CORK INSULATOR HELPER) No Radha Bonilla RN Note: Patient will establish a comfort-function [...] 2. No significant scoliosis. Dictated by: Chavez hSah M.D. The radiology attending physician has personally [...] body heights are maintained. Procedure Note Len Baum, DO - 04/15/2025 EXAMINATION: XR SCOLIOSIS AP [...] REPORT Patient: QASIM DE LOS SANTOS. Account: [id number] Room No: : 1960 Patient Type: OPA Attend.: Bolivar Florian M.D. Admit Date: 07/04/2011 Dict.: Bolivar Florian M.D. Disch. Date: NAME OF PROCEDURE: Colonoscopy. HISTORY: This is a 51-year-old male who presents for screeningcolonoscopy. PHYSICAL EXAMINATION: GENERAL: Well developed male. LUNGS: Clear. CARDIOVASCULAR: Unremarkable. PROCEDURE: Colonoscopy was performed with a [employer] video endoscope.The patient was premedicated by anesthesia. [...] Most Recently Relevant to Health Maintenance Insurance [facility] [place] Care Teams R And D Lab Technician Relationship Specialty Start Date End Date Aureliano Rogers MD PCP - General 03/28/19
--- OUTSIDE RECORDS SUMMARY | 2025-04-23 02:10 | XMS_ITS | Encounter Summary ---
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) use of opiate analgesic (Primary Dx); Degenerative lumbar spinal stenosis; Lumbar radiculopathy Discharge Disposition: Discharge to home or self care Social History Tobacco Use Types Packs/Day Years [...] on file Legal 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 Gender Identity Male 08/25/2024 9:56 AM CDT Sexual Orientation Straight 08/25/2024 9: 56 AM CDT documented as of this encounter Last Filed Vital Signs Vital Sign Reading Time Taken Comments Blood Pressure 118/72 04/22/2025 9:19 AM CDT Pulse 74 04/22/2025 9:19 AM CDT Temperature - - Respiratory Rate 16 04/22/2025 9:19 AM CDT Oxygen Saturation 97% 04/22/2025 9:19 AM CDT Inhaled Oxygen Concentration - - Weight - - Height - - Body Mass Index - - documented in this encounter Medications at Time of Discharge 0.9 % sodium chloride (sodium chloride 0.9%) 0.9% infusion Infuse 10 mL into a venous catheter 2 (two) times a day 02/28/2023 albuterol HFA (PROVENTIL HFA,VENTOLIN HFA,PROAIR HFA) 90 mcg/actuation inhaler Inhale 2 puffs every 6 (six) hours as needed amoxicillin-clavul anate (AUGMENTIN) 875-125 mg per tablet TAKE 1 TABLET BY MOUTH EVERY 12 HOURS 180 tablet 02/16/2025 cetirizine 10 mg capsule Take 1 tablet by mouth daily 03/02/2023 colchicine (COLCRYS) 0.6 mg tablet Take 2 tablets by oral route now then one tablet in one hour 01/12/2024 diazePAM (VALIUM) 5 mg tabletIndications: anxiety Take 1 tablet (5 mg total) by mouth as needed for anxiety 5mg 1 hour prior to MRI. Patient may repeat second dose of 5mg immediately before MRI 2 tablet 10/31/2024 diazePAM (VALIUM) 5 mg tabletIndications: Panic Disorder,Sedation, anxiety Take 1 tablet (5 mg total) by mouth as directed Take one 5mg tablet one hour before MRI. May repeat second dose of one 5mg tablet immediately before MRI. Please have p d driver to and from MRI. 2 tablet 11/12/[address] (CYMBALTA) 30 mg capsule 09/05/2021 fluticasone propionate (FLONASE) 50 mcg/actuation nasal spray 02/21/2021 gabapentin (NEURONTIN) 300 mg capsuleIndications :Chronic bilateral low back pain without sciatica,Lumbar radiculopathy Take 1 capsule (300 mg total) by mouth 3 (three) times a day 90 capsule 3 01/14/2025 5 HYDROcodone-acetam inophen (NORCO) 10-325 mg per tabletIndications: Pain Take 1 tablet by mouth 3 (three) times a day as needed for pain 80 tablet 06/21/2025 5 HYDROcodone-acetam inophen (NORCO) 10-325 mg per tabletIndications: Pain Take 1 tablet by mouth 3 (three) times a day as needed for pain 90 tablet 05/22/2025 5 HYDROcodone-acetam inophen (NORCO) 10-325 mg per tabletIndications: Pain Take 1 tablet by mouth 3 (three) times a day as needed for pain 80 tablet 04/22/2025 5 Movantik 25 mg tablet Take 1 tablet (25 mg total) by mouth daily 04/09/2023 naloxone (NARCAN) 4 mg/actuation spray,non-aerosolI ndications:DDD (degenerative disc disease), lumbar,Lumbar facet arthropathy Administer 1 spray into affected nostril(s) as needed for opioid reversal 1 each 08/13/2023 pravastatin (PRAVACHOL) 10 mg tablet Take 1 tablet (10 mg total) by mouth daily 02/08/2021 rizatriptan (MAXALT) 10 mg tablet 11/27/2023 sildenafiL (VIAGRA) 25 mg tablet 04/11/2024 sulfamethoxazole-t rimethoprim (BACTRIM DS) 800-160 mg per tablet TAKE 1 TABLET BY MOUTH EVERY 12 HOURS 180 tablet 02/16/2025 documented as of this encounter Discharge Disposition Disposition Code Departure Means Destination Discharge to home or self care documented in this encounter Progress Notes * Светлана Andrews NP - 04/22/2025 9:15 AM CDT Treatment Summary Brief Assessment and Plan: Continue low-dose opioid therapy for chronic, multifactorial low back pain in the setting of previous lumbar spine surgery The following imaging/procedural orders were placed during this visit: No orders of the defined types were placed in this encounter. Medications: Dayton 10-325 TID PRN (80 pills per month), gabapentin 300 mg TID Follow up: 3 months Today's Date: 04/22/2025 Patient Name: Tre Hardin Age: 64 y.o. [facility] Return Visit Subjective Tre Hardin returns today for ongoing treatment regarding his history of axial low back pain. PMH is notable for history of spine surgery (L4-S1 instrumented fusion c/b osteomyelitis diskitis on Bactrim and Augmentin BID for suppression). Primary purpose of today's visit: Medication visit Results of procedure: None Reports that today, pain is Pain Score: 5 - Moderate pain/10 and is same as the pain described previously, see below for pain questionnaire answers. Description: Pain Descriptors: Aching, Dull Location: Pain Location: Back (Lumbar) Aggravating factors: Aggravating Factors: Walking, Bending Alleviating factors: rest, heat, and taking medications Radiation?: Pain Radiating Towards: bhanu anterior legs Regarding current medication regimen, patient reports pain is greatly relieved (ie >75%) with current regimen. Current prescription(s) via this clinic: Gabapentin 300 mg TID, Dayton 10-325 TID PRN (80 pills per month) Changes made during last visit? No Side effects? No OME (if applicable): 30 Last UDS: 04/2024, consistent No change in pain pattern, no red flag symptoms. Following with Neurosurgery at [facility], see encounter note dated 04/15/25 for up to date plan. THERAPIES TO DATE INTERVENTIONS (this clinic only): RELEVANT SURGERIES: Right SIJ injection: 11/2022 Bilateral L4-5, L5-S1 RFA: 04/2022 L5-S1 ILESI: 01/2022, 12/2021, 11/2021 Bilateral SIJ injection: 01/2022 L4-S1 instrumented fusion Current medications: [] Tylenol [x] Gabapentin [] Nortriptyline [] Tramadol [] Oxycontin [x] Flexeril [] Lidocaine patch [] -Triptans [] Aspirin [] Lyrica [] Amitriptyline [] Tylenol 3 [] MSContin [] Tizanidine [] OTC topicals [] Propranolol [] Aleve [] Cymbalta [] Topiramate [] Codeine [] Dilaudid [] Baclofen [] Capsaicin [] Botox [] Ibuprofen [] Valproate [] Oxycodone [] Methadone [] Soma [] Fioricet [] Meloxicam [] Carbamazepine [x] Dayton [] Fentanyl [] Metaxalone [] Diclofenac [] Naltrexone [] Percocet [] Buprenorphine [] Methocarbamol [] Celebrex [] Morphine [] Nucynta [] Soma Other: CONSERVATIVE MEASURES [x] Physical Therapy [x] Chiropractor [x] Home Exercise [] Yoga/stretching [] TENS Unit [] OTC medications (see above) [x] Heat/ice [] Other Pt has tried the conservative measures indicated above for at least 6 months with inadequate relief. Tre Hardin's history was reviewed and updated as appropriate including past medical history, pastsurgical history, social history, family history, allergies, and home medication list. A review of systems was completed, reviewed, and scanned into the chart. SAÚL, PEG Scale, and Current Opioid Misuse Measure (COMM) as follows: Modified Oswestry Low Back Pain Score: 19 Objective Vitals: 04/22/25 0919 BP: 118/72 Pulse: 74 Resp: 16 SpO2: 97% PHYSICAL EXAM General: Pleasant, no acute distress, normal appearance, grooming and nutrition Skin: No rashes or lesions on exposed skin Heart/Lungs: non labored breathing Neuro/MSK: Ambulates without assist device Normal coordination in upper and lower extremities Strength and sensation intact throughout No upper motor neuron sign DIAGNOSTICS I have reviewed all relevant imaging studies and explained pertinent findings to the patient. 2023: X-ray scoliosis Combined posterior and interbody fusion from L4 to S1 with unchanged severe degenerative disc disease at L3-L4. No evidence of hardware complication. 2022: MRI lumbar spine w/wo contrast 1. No evidence of residual osteomyelitis-discitis or epidural phlegmon/abscess. Unchanged size of the laminectomy bed fluid collection which demonstrates peripheral enhancement similar to the prior examination, likely seroma. 2. Redemonstrated posterior instrumented spinal fusion, interbody devices and posterior decompression at L4-S1. 3. No significant change in degenerative changes of the spine relative to 04/16/2023. Redemonstrated moderate spinal canal stenosis at L3-L4 and moderate to severe bilateral neural foraminal stenosis at L3-L4 and L4-L5 as described above. 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 Lennon. No concerns for abusive or aberrant behavior. He takes Movantik daily for his opioid induced constipation, but does not receive this prescription from us. Patient generally taking only twice a day versus the 3 times a day dosing unless he is particularlyactive that day. Discussed decreasing by overall quantity of 10 pills a month to account for how heis actually taking. Patient agreeable to this plan. Three-month refill, follow up in 3 months. Светлана Andrews NP Interventional pain management [facility] PLAN JUSTIFICATION At this time, our clinic will (or will continue to) provide an opioid prescription for treatment ofthis patient's pain. This is a condition that A) has failed to respond to non-opioid alternatives and B) necessitates treatment for longer than 7 days. Both [place] PDMP and pain contract reviewed and appropriate. There are no concerns for aberrant use, misuse, or diversion and the opioid therapy continues to provide functional benefit. We reviewedtreatment goals (ie maximizing function, improving quality of life) and that medication therapy should always be viewed as a supplement to regular exercise/physical therapy/weight loss. We reviewed side effects of chronic opioid therapy including (but not limited to): drowsiness, tolerance, addiction, hyperalgesia, endocrine dysfunction, immune-suppression, constipation, itching, nausea/vomiting, respiratory depression, sexual dysfunction, and . We also reviewed that opioids may not be combined with benzodiazepines, alcohol, muscle relaxants (specifically baclofen, soma, robaxin, and diazepam), or other depressant medications given risk for excessive sedation and respiratory depression. Concomitant use of these substances will result in discontinuation of prescription. UDS screens will be performed to assess for medication, metabolites, other medications, and illicit substances. Patient is aware and expressed understanding. Prescription provided: Dayton 10-325 TID PRN (80 pills per month) Duration of prescription: Three-month Urine sample obtained today: No Of note, this is a historical prescription that was initiated by a different provider which I inherited upon joining the practice. Stable dose, we will not increase going forward. Favor interventional/conservative therapies if pain worsens or evolves. MIPS Best Practice documentation Blood pressure in clinic today was BP: 118/72. This classifies as a normal BP reading (SBP<120 and DBP<80). No follow up required. Patient is not a tobacco user. POLITICAL ORGANIZER: Sales Representative [employer] completed with [employer], dictation proofread to best of my ability. documented in this encounter Nursing Notes * Radha Bonilla, RN - 04/22/2025 9:15 AM CDT Level 2 Escorted patient to exam room. Obtained vital signs. Reviewed patient's allergies and current medications. Obtained and verified patient's simple medical/surgical history. Confirmed the reason for visit with the patient. Obtained the following screening assessments: [x] Modified Oswestry Low Back Pain Questionnaire [] PMC Intake Questionnaire [] PMC Follow up Questionnaire [] Fall Risk Assessment (Estephania Anderson Steadi) [x] Depression/Anxiety Assessment (GAD7, PHQ-9, Ray Suicide, Perez Depression) [] Disability Scale [] CAGE [x] SOAPP-R/COMM Additional tasks included: [] Random medication adherence check (pill verification by two nurses) [] Work/school note written [] Pended CT/MRI/MRA order [] Pain assessment for multiple sites [x] PEG Vital Signs Pulse: 74 Resp: 16 BP: 118/72 SpO2: 97 % Post-visit transport confirmed with the patient. Total time spent for patient care, education, and care coordination was approximately 11-20 minutes. documented in this encounter Plan of Treatment Scheduled Procedures Name Priority [...] Author BH-Pain Behavioral Health Improving( 2:16 PM NAIL WELTER) No Radha Bonilla RN Note: Patient will establish a comfort-function goal and identify the pain level that will allow the patient to perform desired activities and achieve an acceptable quality of life. documented as of this encounter Visit Diagnoses Diagnosis skilled nursing (current) use of opiate analgesic- Primary Degenerative lumbar spinal stenosis Spinal stenosis of lumbar region Lumbar radiculopathy Thoracic or lumbosacral neuritis or radiculitis, unspecified documented in this encounter Care Teams Highway Commissioner Relationship Specialty Start Date End Date Aureliano Rogers MD PCP - General 03/28/19 documented as of this encounter
[2025-04-23 09:39] VITALS: BP 125/79; PULSE 78; RESP 18; TEMP 36.9; O2SAT 95; BMI 27.5
[2025-04-23] MEDS: LACTATED RINGERS 1,000 ML 150 ML IV CONT (09:49)
--- NOTE | 2025-04-23 10:29 | WPDANESEPPF ---
Anes - Initial Pre Proc Eval Procedure: Operation Date: 04/23/25 11:00 Proposed Procedures p Screening Colonoscopy - Romero Walker MD Date/Time: 04/23/25 10:29 Surgeon: Romero Walker MD Pre Op Diagnosis: Personal hx of colon polyps Patient Data Age: 64 Gender: M Height: 1.73 m Weight: 82.2 kg Last Vital Signs Temp 98.5 F 04/23/25 09:39 Pulse 78 04/23/25 09:39 Resp 18 04/23/25 09:39 BP 125/79 04/23/25 09:39 Pulse Ox 95 04/23/25 09:39 O2 Del Method Room Air 04/23/25 09:39 Allergies Allergy/AdvReac Type Severity Reaction Status Date / Time No Known Allergies Allergy Verified 04/23/25 09:38 Home Medications ?Medication ?Instructions ?Recorded ?Confirmed ?Type albuterol sulfate 90 mcg/actuation 2 inh inhalation TID PRN Dyspnea 01/19/20 04/14/25 History aerosol inhaler (ProAir HFA) calcium 600 mg (as 1 cap PO QAM 01/19/20 04/23/25 History carbonate)-vitamin D3 5 mcg (200 unit) capsule (Calcium 600 + D(3)) cetirizine 10 mg capsule (All Day 10 mg PO DAILY 01/19/20 04/23/25 History Allergy (cetirizine)) fluticasone propionate 50 1 spray intranasal HS 01/19/20 04/14/25 History mcg/actuation nasal spray,suspension multivit,stress formula-zinc 1 tablet PO DAILY 01/19/20 04/23/25 History tablet (Stress B With Zinc tablet) rizatriptan 10 mg tablet 10 mg PO ONCE PRN migraine headache 01/19/20 04/14/25 History sildenafil (pulm.hypertension) 20 20 mg PO DAILY PRN Erectile 01/19/20 04/14/25 History mg tablet Dysfunction amoxicillin 875 mg-potassium 1 tablet PO Q12H 04/14/25 04/14/25 History clavulanate 125 mg tablet duloxetine 30 mg capsule,delayed 60 mg PO DAILY 04/14/25 04/23/25 History release gabapentin 300 mg capsule 300 mg PO Q12H 04/14/25 04/23/25 History hydrocodone 10 mg-acetaminophen 1 tablet PO TID PRN pain 04/14/25 04/14/25 History 325 mg tablet naloxegol 25 mg tablet (Movantik) 25 mg PO DAILY 04/14/25 04/23/25 History pravastatin 10 mg tablet 10 mg PO DAILY 04/14/25 04/23/25 History sulfamethoxazole 800 1 tablet PO Q12H 04/14/25 04/23/25 History mg-trimethoprim 160 mg tablet Patient hx anesthesia problems: none Family hx anesthesia problems: none Results Review: All pre-operative results and documents have been reviewed as part of the pre-operative evaluation. [facility] Past Medical History Medical History (Updated 01/21/20 @ 10:21 by Romero Walker MD) Colon cancer screening Chewing tobacco nicotine dependence Back pain Social History Social History Smokeless tobacco user: chewing tobacco Alcohol intake: current Substance use type: does not use Living arrangements: with family Spiritual care concerns: No Anes - Eval Final PreProcedure Day of Procedure 04/23/25 10:29 Patient weight: normal Heart: regular rate and rhythm Lungs: clear to auscultation Airway: Mallampati scale class II Neurological: alert and oriented Last oral intake: >/= 8 hours ASA classification: II Emergent: no Anesthetic plan: proceed Anesthesia type and monitoring: general GIVS and standard monitoring Results Review: All pre-operative results and documents have been reviewed as part of the pre-operative evaluation. Informed Consent: The patient's anesthetic plan and its attendant risks and benefits were discussed with the patient/family/POA. Questions were solicited and answers provided to the satisfaction of the patient/family/POA.
--- NOTE | 2025-04-23 10:34 | PM.HPGS ---
History of Present Illness History of Present Illness Consent: Risks, benefits, and alternatives have been discussed and questions answered. Patient agrees to proceed with procedure. Chief complaint: Personal hx of colon polyps Narrative: Tre Hardin is a 64 year old male with colon polyp in 2019 Review of Systems Review of Systems: All systems reviewed & are unremarkable except as noted in HPI and below PMFSH Past Medical History Medical History (Updated 01/21/20 @ 10:21 by Romero Walker MD) Colon cancer screening Chewing tobacco nicotine dependence Back pain Social History Social History Smokeless tobacco user: chewing tobacco Alcohol intake: current Substance use type: does not use Living arrangements: with family Spiritual care concerns: No Meds Home Medications and Allergies Home Medications ?Medication ?Instructions ?Recorded ?Confirmed ?Type albuterol sulfate 90 mcg/actuation 2 inh inhalation TID PRN Dyspnea 01/19/20 04/14/25 History aerosol inhaler (ProAir HFA) calcium 600 mg (as 1 cap PO QAM 01/19/20 04/23/25 History carbonate)-vitamin D3 5 mcg (200 unit) capsule (Calcium 600 + D(3)) cetirizine 10 mg capsule (All Day 10 mg PO DAILY 01/19/20 04/23/25 History Allergy (cetirizine)) fluticasone propionate 50 1 spray intranasal HS 01/19/20 04/14/25 History mcg/actuation nasal spray,suspension multivit,stress formula-zinc 1 tablet PO DAILY 01/19/20 04/23/25 History tablet (Stress B With Zinc tablet) rizatriptan 10 mg tablet 10 mg PO ONCE PRN migraine headache 01/19/20 04/14/25 History sildenafil (pulm.hypertension) 20 20 mg PO DAILY PRN Erectile 01/19/20 04/14/25 History mg tablet Dysfunction amoxicillin 875 mg-potassium 1 tablet PO Q12H 04/14/25 04/14/25 History clavulanate 125 mg tablet duloxetine 30 mg capsule,delayed 60 mg PO DAILY 04/14/25 04/23/25 History release gabapentin 300 mg capsule 300 mg PO Q12H 04/14/25 04/23/25 History hydrocodone 10 mg-acetaminophen 1 tablet PO TID PRN pain 04/14/25 04/14/25 History 325 mg tablet naloxegol 25 mg tablet (Movantik) 25 mg PO DAILY 04/14/25 04/23/25 History pravastatin 10 mg tablet 10 mg PO DAILY 04/14/25 04/23/25 History sulfamethoxazole 800 1 tablet PO Q12H 04/14/25 04/23/25 History mg-trimethoprim 160 mg tablet Allergies Allergy/AdvReac Type Severity Reaction Status Date / Time No Known Allergies Allergy Verified 04/23/25 09:38 Vital Signs Vital Signs - 24 hr 04/23/25 09:39 Temperature 98.5 F Pulse Rate 78 Respiratory Rate 18 Blood Pressure 125/79 Pulse Oximetry 95 Oxygen Delivery Room Air Exam Const: General: comfortable and no acute distress HENMT: Face/Nose/Sinus: Normal nares present Eyes: General: appearance normal, both eyes and all related structures Neck: Neck: no JVD Resp: Auscultation: clear to auscultation bilaterally Cardio: Rate: regular rate Rhythm: regular rhythm GI: Inspection: non-distended GI Palp: Yes Soft to palpation Skin: General skin exam: normal color Neuro: General: gait normal Speech: normal speech Extrem: General: normal to inspection Psych: Mental Status: mental status grossly normal Assessment and Plan Assessment and plan (1) Colon cancer screening: Code(s): Z12.11 - Encounter for screening for malignant neoplasm of colon Status: Acute Assessment and Plan: colonoscopy
--- NOTE | 2025-04-23 10:55 | S_PTH ---
PATIENT: Tre Hardin LOC: [facility]#:[id number] AGE/SX: 64/M ROOM: RE04/23/[address]: Romero Walker MD : 1960 BED: DIS: 04/23/2025 SPEC #: [id number] RECD: 04/23/25 13:11 STATUS: REZA REHaley #: [id number] RON: 04/23/25 10:[address]: Romero Walker DEPT: [facility] Surgical RECD BY: Mary Robledo ENTERED: 04/23/25 13:11 SP TYPE: Surgical OTHR DR: Aureliano Rogers MD Tissues: A - Colon Polypectomy B - Colon Polypectomy Procedures: Hematoxylin and Eosin Stain Gross and Microscopic Level 4
[2025-04-23 10:57] VITALS: BP 90/60; PULSE 68; RESP 19; O2SAT 94
[2025-04-23 11:07] VITALS: BP 105/73; PULSE 66; RESP 16; O2SAT 96
[2025-04-23 11:17] VITALS: BP 109/57; PULSE 71; RESP 17; O2SAT 99
== END 2025-04-23 11:26 | disposition home or self-care (01) ==
PROVIDERS: PCP Internal Medicine; Referring Provider Internal Medicine Gastroenterology; Visit Provider Internal Medicine Gastroenterology
PROC: 0DJD8ZZ Inspection of Lower Intestinal Tract, Via Natural or Artificial Opening Endoscopic (ICD-10-PCS; CPT 45378; principal; 2025-04-23 11:00)
DX: Z12.11 Encounter for screening for malignant neoplasm of colon (principal); D12.2 Benign neoplasm of ascending colon; D12.5 Benign neoplasm of sigmoid colon; K64.8 Other hemorrhoids; K57.30 Diverticulosis of large intestine without perforation or abscess without bleeding; F17.220 Nicotine dependence, chewing tobacco, uncomplicated; Z79.51 Long term (current) use of inhaled steroids; Z79.891 Long term (current) use of opiate analgesic
CPT/HCPCS: 45380; 45385; 88305; J2003; J2704; J7120